=== PATIENT | female | born 1990 | race Caucasian/White ===

== ENCOUNTER 2016-09-22 18:56 | Inpatient (IN) | payer OTHER ==
[~2016-09-22] VITALS: Ht 193 cm; Wt 85.8 kg
[2016-09-22 22:30] VITALS: BP 95/53; RESP 18
[2016-09-22 23:00] VITALS: Ht 193 cm; Wt 85.8 kg
[2016-09-22] MEDS ORDERED: SOD CHLORIDE 0.9% 1,000 ML IV ONE (23:30)
[2016-09-23] MEDS ORDERED: SOD CHLORIDE 0.9% 1,000 ML IV ONE
[2016-09-23] MEDS ORDERED: NACL 0.9% 3 ML SYG IV SCH (00:30)
[2016-09-23] MEDS: ACETAMINOPHEN 325 MG TAB PO PRN ×3 (01:38→17:09)
[2016-09-23] MEDS: morphine 2 MG INJ IV PRN ×4 (01:38→22:51)
[2016-09-23 02:02] LABS: ADD SCAN DIFF NO
[2016-09-23 02:04] LABS: BASOPHILS % 0.2 % (0.0-2.0); HEMOGLOBIN 10.6 g/dl (12.0-16.0); LYMPHOCYTES # 1.1 10^3/ul (0.8-2.9); LYMPHOCYTES % 7.1 % (15.0-51.0); MEAN CORPUSCULAR HEMOGLOBIN 29.4 pg (29.0-33.0); MEAN CORPUSCULAR HGB CONC 36.6 g/dl (32.0-37.0); MEAN CORPUSCULAR VOLUME 80.6 fl (82.0-101.0); MEAN PLATELET VOLUME 9.7 fl (7.4-10.4); MONOCYTE # 0.4 10^3/ul (0.3-0.9); MONOCYTES % 2.6 % (0.0-11.0); NEUTROPHIL # 13.9 10^3/ul (1.6-7.5); NEUTROPHILS % 89.4 % (39.0-77.0); PLATELET COUNT 143 10^3/UL (140-415); RED CELL DISTRIBUTION WIDTH 14.1 % (11.5-14.5); WHITE BLOOD COUNT 15.6 10^3/ul (4.8-10.8)
[2016-09-23 02:09] VITALS: BP 94/54; RESP 18
[2016-09-23 02:27] LABS: ALBUMIN 3.7 g/dl (3.3-4.9); ALBUMIN/GLOBULIN RATIO 1.37; BILIRUBIN,INDIRECT 1.1 mg/dl (0-1.1); BILIRUBIN,TOTAL 1.1 mg/dl (0.2-1.3); CALCIUM 8.3 mg/dl (8.4-10.2); CREATININE 0.64 mg/dl (0.44-1.00); TOTAL PROTEIN 6.4 g/dl (6.1-8.1)
[2016-09-23 02:41] LABS: INR 1.17; PT RATIO 1.2
[2016-09-23 02:42] LABS: PARTIAL THROMBOPLASTIN TIME 30.4 Sec (25.0-35.0)
[2016-09-23] MEDS: SOD CHLORIDE 0.9% 1,000 ML IV SCH ×3 (03:29→22:51)
[2016-09-23] MEDS ORDERED: IBUPROFEN 600 MG TAB PO ONE (04:00)
[2016-09-23] MEDS ORDERED: KETOROLAC 15 MG INJ IV ONE (05:00)
[2016-09-23] MEDS: PANTOPRAZOLE 40 MG INJ IV SCH (05:07)
--- NOTE | 2016-09-23 05:18 | HP ---
Date/Time of Note Date/Time of Note DATE: 09/23/16 TIME: 05:11 Assessment/Plan VTE Prophylaxis VTE Prophylaxis Intervention: SCD's Lines/Catheters IV Catheter Type (from [facility]): Peripheral IV Urinary Cath still in place: No Assessment/Plan Chief Complaint/Hosp Course This is a 18-year-old female [facility] for: #1 sepsis: Tachycardia/fevers/leukocytosis with suspected infection. At the current time will further evaluate for possible endometritis. Will also order urinalysis and urine culture. Will start on IV ceftriaxone and doxycycline. #2 suspected endometritis: White blood cell count of 15. Patient had positive leukoesterase on her labs from [facility]. She was treated with clindamycin and gentamicin at the facility. After discussing the case with the OB laborist at [facility] at the current time we will order a stat vaginal ultrasound. Will put her on IV ceftriaxone and doxycycline. BOWLING ALLEY MANAGER will evaluate the patient, appreciate their involvement. IV pain control medications. IV fluid hydration. #3 miscarriage: Patient apparently had a miscarriage approximately 15 days ago and is status post D&C approximately 5 days ago. Will order vaginal ultrasound to further evaluate. #4 DVT and GI prophylaxis: SCDs, Protonix Further treatment strategy will be implemented as per the clinical course Problems: HPI/ROS Admit Date/Time Admit Date/Time Sep 22, 2016 at 22:22 Hx of Present Illness Chief complaint: Bilateral lower abdominal pain This is a 26-year-old female who was transferred over here from [facility] for bilateral lower abdominal pain suspected of possible endometritis. Patient was seen there complaining of pain that started yesterday with a fever , and bilateral lower abdominal pain. She 15 days ago had a miscarriage. And then was seen at a clinic where she had a D&C approximately 5 days ago. Her pain started last night at approximately 5 PM. She did have vomiting as well. She still feels nauseated at this time. She is . Allergies: NKDA Medications: None ROS Const: As per HPI Eyes : No pain discharge or redness or change in visual acuity ENT: No pain, sore throat, congestion, congestion, dysphagia or discharge Respiratory: No shortness of breath, cough, sputum, wheezing, or pleuritic pain Cardiovascular: No chest pain, palpitation, PND, or edema GI : As per HPI Genitourinary: As per HPI Musculoskeletal: No joint pain, back pain, neck pain, restricted range of motion in neck or joints Skin: No rash, bruising or hives Neuro: No headache, dizziness, syncope, seizure, focal weakness Endocrine: No polyuria, polydipsia, temperature intolerance Psych: No hallucination, depression, anxiety or suicidal ideation PMH/Family/Social Past Medical History Appendicitis, miscarriage Past Surgical History D&C approximately 5 days ago, appendectomy Family History Significant Family History: no pertinent family hx Social History Alcohol Use: none Smoking Status: Never smoker Drug Use: none Exam/Review of Systems Vital Signs Vitals Vital Signs Date Time Temp Pulse Resp B/P Pulse Ox O2 Delivery O2 Flow Rate FiO2 09/23/16 02:09 103.1 127 18 94/54 93 Exam Exam General: Patient is a obese female in mild distress from pain. HEENT: Atraumatic, normocephalic. The pupils are equal, round and reactive. Extraocular motor are intact Neck: Supple with full range of motion. No rigidity or meningismus Chest: Nontender Lungs: Clear to auscultation bilaterally no crackles rales or wheezing Heart: Normal S1-S2, Regular rhythm and rate. No murmur, S3, or S4 Abdomen: Soft, bilateral lower abdominal quadrant tenderness to palpation Extremities: Normal to inspection, no edema no cyanosis Neurologic: Normal mental status, speech normal, cranial nerves II through XII are intact, motor and sensory are intact, no focal weakness Labs Result Diagram: 09/23/1613409/23/16 0135 Medications Medications Current Medications Sodium Chloride (NS) 1,000 ml @ 80 mls/hr [id number] IV Last administered on 09/23 03:29; Admin Dose 80 MLS/HR; Start 09/23/16 at 00:23 Ondansetron HCl (Zofran Inj) 4 mg Q6H PRN IV NAUSEA AND/OR VOMITING; Start 12/31 at 00:30 Acetaminophen (Tylenol Tab) 650 mg Q6H PRN PO PAIN LEVEL 1-3 OR FEVER Last administered on 09/23/16 01:38; Admin Dose 650 MG; Start 09/23/16 at 00:30 Morphine Sulfate (morphine) 2 mg Q4H PRN IV SEVERE PAIN LEVEL 7-10 Last administered on 09/23/16 01:38; Admin Dose 2 MG; Start 09/23/16 at 00:30 Pantoprazole (Protonix Iv) 40 mg DAILY@06 IV Last administered on 09/23/16 05: 07; Admin Dose 40 MG; Start 09/23/16 at 06:00 Hydromorphone HCl (Dilaudid) 1 mg Q4H PRN IV PAIN; Start 09/23/16 at 05:00 AIDE DIANA Sep 23, 2016 05:17
[2016-09-23] MEDS ORDERED: HYDROmorphONE 1 MG/ML SYG IV PRN (05:30)
--- NOTE | 2016-09-23 06:03 | RADRPT ---
PROCEDURE: US Pelvis CLINICAL INDICATION: Pelvic pain. TECHNIQUE: Sonographic evaluation of the pelvis was performed utilizing both transabdominal and tr ansvaginal technique. Curved array transabdominal transducer technique as well as a high frequency endovaginal probe was utilized. Images were reviewed on the high-resolution PACS workstation. COMPARISON: No prior studies are available for comparison. FINDINGS: The uterus is mildly enlarged, measuring 12.3 x 5.7 x 9.1 cm in dimension. The uterus is anteverted in normal position. The endometrium is within normal limits for a menstrual age female measuring 10 mm in diameter. The normal trilaminar stripe of the endometrium is preserved. The right ovary measures 4.2 x 2.1 x 3.1 cm in dimension. The left ovary measures 4.3 x 1.5 x 2.8 c m in dimension. The ovaries are symmetric in size, echogenicity, and morphology. Normal Doppler fl ow is demonstrated to both ovaries. There are no adnexal masses. There is no significant free flui d in the pelvis. IMPRESSION: Unremarkable ultrasound of the pelvis. RPTAT: HH .Kary Lund MD, Date Time Electronically viewed and signed by .Kary Lund MD, on 09/23/2016 06:03 .G/
[2016-09-23] MEDS: CEFTRIAXONE 1 GM/50 ML (PMX) 50 ML IVPB SCH (06:22)
[2016-09-23 07:10] LABS: ADD UMIC YES; UR ASCORBIC ACID NEGATIVE (NEGATIVE); UR BILIRUBIN (Dip) NEGATIVE (NEGATIVE); UR BLOOD (Dip) 3+ mg/dL (NEGATIVE); UR CLARITY SLIGHTLY CLOUDY (CLEAR); UR COLOR YELLOW (YELLOW); UR GLUCOSE (Dip) NEGATIVE (NEGATIVE); UR KETONES (Dip) 1+ mg/dL (NEGATIVE); UR LEUKOCYTE ESTERASE (Dip) TRACE Leu/ul (NEGATIVE); UR MUCUS FEW /HPF (NONE SEEN); UR NITRITE (Dip) NEGATIVE (NEGATIVE); UR RBC 19 /HPF (0-5); UR SPECIFIC GRAVITY (Dip) 1.017 (1.003-1.030); UR SQUAMOUS EPITHELIAL CELL FEW /HPF (FEW); UR TOTAL PROTEIN (Dip) NEGATIVE (NEGATIVE); UR UROBILINOGEN (Dip) NEGATIVE (NEGATIVE)
[2016-09-23 07:35] VITALS: BP 104/59; RESP 16
[2016-09-23] MEDS: DOXYCYCLINE 100 MG in SOD CHLORIDE 0.9% 250 ML IVPB SCH ×2 (08:39→22:43)
[2016-09-23 14:30] VITALS: BP 93/56; RESP 16
[2016-09-23] MEDS: ONDANSETRON 4 MG INJ IV PRN (16:22)
[2016-09-23] MEDS ORDERED: SOD CHLORIDE 0.9% 500 ML IV ONE (17:30)
[2016-09-23] MEDS ORDERED: BARIUM SULF 2% 450 ML BTL (BERRY SMOOTHIE) PO ONE (17:30)
--- NOTE | 2016-09-23 17:39 | EN ---
Date/Time of Note Date/Time of Note DATE: 09/23/16 TIME: 17:38 Event Note Medicine Medicine Event Note Around 1715, I received a call from the RN stating that the patient has a high fever and she is tachycardic and has shaking chills. Came to the patient's bedside and assessed the patient. The patient was complaining of headache. Denied any chest pain. Complains of lower back pain. The patient was noted to be in sinus tachycardia. Patient was desaturating. Hence the patient was put on supplemental oxygen. A stat chest x-ray and stat CT scan of the abdomen and pelvis was ordered. A stat 12-lead EKG was ordered. A normal saline bolus was ordered followed by normal saline at 125 mL/hr. The patient will be moved to telemetry floor. The patient also relates that she has a history of supraventricular tachycardia in the remote past. However, she does not take any medications for this. Patient will be closely monitored in the telemetry floor. Infectious disease consult will be called for further evaluation of her underlying sepsis. Case discussed with Dr. Victor Critical care time: 35 minutes. SARITA BENSON NP Sep 23, 2016 17:39
--- NOTE | 2016-09-23 18:22 | RADRPT ---
PROCEDURE: XR Chest. CLINICAL INDICATION: Rule out infiltrates. TECHNIQUE: PA and Lateral views of the chest were obtained. COMPARISON: None. FINDINGS: The cardiomediastinal silhouette is within normal limits. The lungs are clear. No signs of pleural f luid or pneumothorax are seen. The osseous structures and soft tissues are unremarkable. IMPRESSION: No evidence for active cardiopulmonary disease. RPTAT: UU Physician Yarelis Date Time Electronically viewed and signed by Abby Hamlin Physician on 09/23/2016 18:22 RS/
[2016-09-23] MEDS: HYDROmorphONE 1 MG/ML SYG IV PRN (19:23)
[2016-09-23 19:37] VITALS: PULSE 110
[2016-09-23 20:00] VITALS: BP 120/67; RESP 15
[2016-09-23 20:05] VITALS: PULSE 110
[2016-09-23] MEDS ORDERED: KETOROLAC 15 MG INJ IV STA (23:29)
[2016-09-24] VITALS (12 sets, daily range): BP systolic 89–100; BP diastolic 52–62; PULSE 69–85; RESP 15–18
[2016-09-24] MEDS: HYDROmorphONE 1 MG/ML SYG IV PRN ×3 (03:03→21:33)
[2016-09-24] MEDS: CEFTRIAXONE 1 GM/50 ML (PMX) 50 ML IVPB SCH (05:09)
[2016-09-24] MEDS: PANTOPRAZOLE 40 MG INJ IV SCH (05:09)
[2016-09-24] MEDS: SOD CHLORIDE 0.9% 1,000 ML IV SCH ×4 (06:34→22:34)
[2016-09-24] MEDS: ONDANSETRON 4 MG INJ IV PRN (06:43)
--- NOTE | 2016-09-24 06:45 | RADRPT ---
PROCEDURE: CT Abdomen and pelvis without contrast. CLINICAL INDICATION: Abdominal pain TECHNIQUE: CT scan of the abdomen and pelvis with contrast was performed on a multidetector high-r esolution CT scan. . Coronal and sagittal reformatted images were obtained from the axial source i mages. Standard CT scan of the abdomen pelvis without contrast protocols were performed. The total exam CTDI equals 20.33 mGy and the total exam DLP equals 1275.66 mGy-cm. One or more of the following dose reduction techniques were used: - Automated exposure control. - Adjustment of the mA and/or kV according to patient size. Use of iterative reconstruction technique. COMPARISON: Pelvic ultrasound 09/23/2016 FINDINGS: There is bilateral lower lobe consolidation which may all be due to atelectasis though rule out pneu monia. There are bilateral trace pleural effusions. There are multiple calcified gallstones within a contracted gallbladder 1 of which is at the level t he gallbladder neck. No pericholecystic fluid or biliary ductal dilation. However a right upper qu adrant abdominal ultrasound may be helpful for further evaluation. The kidneys are normal in size without calcified renal calculi hydronephrosis or intra renal masses bilaterally. The ureters and urinary bladder are unremarkable. The uterus is anteverted but otherwise unremarkable. No adnexal masses. There is trace fluid in th e cul-de-sac without other abdominal free fluid, free air, abscesses or lymphadenopathy. The appendix is not visualized however no CT evidence of appendicitis. The stomach, small bowel and large bowel are unremarkable. The spleen is mildly enlarged but no focal splenic lesions. There is 1.5 cm accessory spleen along the medial aspect of the spleen. The liver pancreas and adrenal glands are unremarkable. The aorta is unremarkable. There is a tiny fat containing umbilical hernia but no herniated bowel or strangulation. The remain radha of the lower thoracic abdominal and pelvic andrew are unremarkable. There are no acute osseous findings are osteoblastic/osteolytic lesions. Elongated well-circumscrib ed sclerotic density involving the lateral left ilium as likely a bone island. IMPRESSION: 1. Bilateral lower lobe consolidations may all represent atelectasis however without pneumonia. 2. Bilateral basilar trace pleural effusions. 3. Multiple calcified gallstones within a contracted gallbladder is described above. No pericholec ystic fluid biliary ductal dilation. Recommend clinical correlation and consideration of a right up per quadrant abdominal ultrasound for further evaluation. 4. No evidence of gastrointestinal disease. Negative for intra-abdominal free air or abscesses. 5. Mild splenomegaly without focal splenic lesions. 6. Tiny fat containing umbilical hernia without herniated bowel or strangulation. RPTAT:AAJJ Pierce Bateman Physician Date Time Electronically viewed and signed by Pierce Bateman Physician on 09/24/2016 06:45 BM/
--- NOTE | 2016-09-24 06:47 | RADRPT ---
PROCEDURE: CT Brain without contrast. CLINICAL INDICATION: headache TECHNIQUE: CT scan of the brain was performed on a multidetector high-resolution CT scan. Axial im aging was obtained of the brain without contrast administration. Coronal and sagittal reformatted i mages were obtained from the axial source images. Standard CT scan of the head without contrast prot ocols were performed. The total exam CTDI equals 43.58 mGy and the total exam DLP equals 630.2 mGy-cm. One or more of the following dose reduction techniques were used: - Automated exposure control. - Adjustment of the mA and/or kV according to patient size. Use of iterative reconstruction technique. COMPARISON: None. FINDINGS: The ventricular system and peripheral CSF spaces are unremarkable. Negative for intracranial masses hemorrhages or midline shift. The woodward-white matter junction is unremarkable. The bones and parul rium are intact. Paranasal sinuses and mastoids are unremarkable. IMPRESSION: Negative CT scan of the head without contrast. RPTAT:AAJJ Physician Esther Date Time Electronically viewed and signed by Physician Esther on 09/24/2016 06:47 BM/
[2016-09-24] MEDS: morphine 2 MG INJ IV PRN ×2 (06:52→18:11)
[2016-09-24 08:38] LABS: ADD SCAN DIFF NO
[2016-09-24 08:42] LABS: BASOPHILS % 0.4 % (0.0-2.0); EOSINOPHILS # 0.1 10^3/ul (0.0-0.5); HEMATOCRIT 28.4 % (37.0-47.0); LYMPHOCYTES # 1.8 10^3/ul (0.8-2.9); LYMPHOCYTES % 22.5 % (15.0-51.0); MEAN CORPUSCULAR HEMOGLOBIN 28.7 pg (29.0-33.0); MEAN CORPUSCULAR HGB CONC 35.2 g/dl (32.0-37.0); MEAN CORPUSCULAR VOLUME 81.6 fl (82.0-101.0); MEAN PLATELET VOLUME 10.8 fl (7.4-10.4); MONOCYTE # 0.4 10^3/ul (0.3-0.9); MONOCYTES % 5.5 % (0.0-11.0); NEUTROPHIL # 5.5 10^3/ul (1.6-7.5); NEUTROPHILS % 69.7 % (39.0-77.0); PLATELET COUNT 144 10^3/UL (140-415); RED BLOOD COUNT 3.48 10^6/ul (4.20-5.40); RED CELL DISTRIBUTION WIDTH 14.4 % (11.5-14.5); WHITE BLOOD COUNT 7.9 10^3/ul (4.8-10.8)
[2016-09-24 09:04] LABS: MAGNESIUM 1.7 mg/dl (1.7-2.5); PHOSPHORUS 3.1 mg/dl (2.5-4.9)
[2016-09-24 09:09] LABS: ALBUMIN 3.4 g/dl (3.3-4.9); ALBUMIN/GLOBULIN RATIO 1.25; BILIRUBIN,INDIRECT 0.4 mg/dl (0-1.1); BILIRUBIN,TOTAL 0.4 mg/dl (0.2-1.3); CALCIUM 8.8 mg/dl (8.4-10.2); CREATININE 0.49 mg/dl (0.44-1.00); POTASSIUM 3.9 mmol/L (3.5-5.1); TOTAL PROTEIN 6.1 g/dl (6.1-8.1)
[2016-09-24 09:16] LABS: CHOL/HDL RATIO 4.2 RATIO
[2016-09-24 09:37] LABS: THYROID STIMULATING HORMONE 2.18 MIU/L (0.465-4.680)
--- NOTE | 2016-09-24 10:50 | PN ---
Date/Time of Note Date/Time of Note DATE: 09/24/16 TIME: 10:49 Assessment/Plan VTE Prophylaxis VTE Prophylaxis Intervention: SCD's Lines/Catheters IV Catheter Type (from [facility]): Peripheral IV Urinary Cath still in place: No Assessment/Plan Chief Complaint/Hosp Course 1. Sepsis. Suspected infection. The patient is status post recent D&C. Status post evaluation by WATER POLLUTION SPECIALIST who agreed with continuing the current antibiotics. No evidence of septic shock. Infectious disease is following the patient. 2. Suspected endometritis. Pelvic ultrasound unremarkable. Continue antibiotics as per WATER POLLUTION SPECIALIST recommendations. 3. Abdominal pain. CT scan of the abdomen and pelvis showing multiple calcified gallstones within a contracted gallbladder with no pericholecystic fluid or biliary ductal dilatation. Abdominal pain was probably secondary to underlying genitourinary infection. Will obtain a right upper quadrant ultrasound to further evaluate the gallbladder. 4. Bilateral lower lobe consolidation. Probably atelectasis. Start the patient on incentive spirometry. 5. Microcytic, hypochromic anemia. The patient is closely. Will obtain an iron panel. 6. Fluids, electrolytes, and nutrition. Regular diet. 7. DVT prophylaxis. Bilateral sequential compression devices. 8. Gastrointestinal prophylaxis. Proton pump inhibitors. 9. Plan. Continue antibiotics. Await pancultures. Continue WATER POLLUTION SPECIALIST and ID recommendations. Encourage incentive spirometry. Encourage out of bed and ambulation. Case discussed with . Problems: Subjective 24 Hr Interval Summary Free Text/Dictation Patient remains afebrile. Had a severe headache earlier. Getting pain medications [id number] for headache. Exam/Review of Systems Vital Signs Vitals Vital Signs Date Time Temp Pulse Resp B/P Pulse Ox O2 Delivery O2 Flow Rate FiO2 09/24/16 08:06 70 09/24/16 07:47 2.0 09/24/16 07:06 98.8 18 94/62 100 09/23/16 20:05 Nasal Cannula Intake and Output 09/23/16 09/23/16 09/24/16 15:00 23:00 07:00 Intake Total 1090 ml 1570 ml Balance 1090 ml 1570 ml Exam General: Adequately build 26 year-old female lying in bed in no apparent distress. HEENT: Normocephalic, atraumatic. Eyes: Anicteric sclerae, conjunctivae clear. ENT: Nasal septum midline, oral mucosa moist. Neck supple, no JVD noticed. Respiratory: Bilaterally clear breath sounds. No use of accessory muscles of respiration. No adventitious breath sounds. Cardiovascular: S1, S2 heard. No murmurs or gallops. Abdomen: Soft and nondistended. Bowel sounds positive in all 4 quadrants. Minimal right upper quadrant and left upper quadrant tenderness. Genitourinary: Deferred. Extremities: No cyanosis, no clubbing, no edema. Peripheral pulses palpable. Neurologic: Cranial nerves II through XII grossly intact. The patient is awake, alert, and oriented. Skin: Normal skin turgor. No skin rashes. Results Result Diagram: 09/24/1633 09/24/16732 Results 24 hrs Laboratory Tests Test 09/23/16 21:50 09/24/16 07:33 Urine Test NEGATIVE White Blood Count 7.9 # Red Blood Count 3.48 L Hemoglobin 10.0 L Hematocrit 28.4 L Mean Corpuscular Volume 81.6 L Mean Corpuscular Hemoglobin 28.7 L Mean Corpuscular Hemoglobin Concent 35.2 Red Cell Distribution Width 14.4 Platelet Count 144 Mean Platelet Volume 10.8 H Neutrophils % 69.7 Lymphocytes % 22.5 Monocytes % 5.5 Eosinophils % 1.0 Basophils % 0.4 Nucleated Red Blood Cells % 0.0 Neutrophils # 5.5 Lymphocytes # 1.8 Monocytes # 0.4 Eosinophils # 0.1 Basophils # 0.0 Nucleated Red Blood Cells # 0.0 Sodium Level 129 L Potassium Level 3.9 Chloride Level 101 Carbon Dioxide Level 26 Anion Gap 6 L Blood Urea Nitrogen 6 L Creatinine 0.49 Glucose Level 86 Hemoglobin A1c 4.8 Calcium Level 8.8 Phosphorus Level 3.1 Magnesium Level 1.7 Total Bilirubin 0.4 Direct Bilirubin 0.00 Indirect Bilirubin 0.4 Aspartate Amino Transf (AST/SGOT) 44 Alanine Aminotransferase (ALT/SGPT) 65 Alkaline Phosphatase 72 Total Protein 6.1 Albumin 3.4 Globulin 2.70 Albumin/Globulin Ratio 1.25 Triglycerides Level 137 Cholesterol Level 137 LDL Cholesterol, Calculated 78 HDL Cholesterol 32 L Cholesterol/HDL Ratio 4.2 Thyroid Stimulating Hormone (TSH) 2.180 Free Thyroxine 1.28 Medications Medications Current Medications Sodium Chloride (NS) 1,000 ml @ 125 mls/hr Q8H IV Last administered on 09:38; Admin Dose 125 MLS/HR; Start 09/23/16 at 00:23 Ondansetron HCl (Zofran Inj) 4 mg Q6H PRN IV NAUSEA AND/OR VOMITING Last administered on 09/24/16 06:43; Admin Dose 4 MG; Start 09/23/16 at 00:30 Acetaminophen (Tylenol Tab) 650 mg Q6H PRN PO PAIN LEVEL 1-3 OR FEVER Last administered on 09/23/16 17:09; Admin Dose 650 MG; Start 09/23/16 at 00:30 Morphine Sulfate (morphine) 2 mg Q4H PRN IV SEVERE PAIN LEVEL 7-10 Last administered on 09/24/16 06:52; Admin Dose 2 MG; Start 09/23/16 at 00:30 Pantoprazole (Protonix Iv) 40 mg DAILY@06 IV Last administered on 09/24/16 05: 09; Admin Dose 40 MG; Start 09/23/16 at 06:00 Hydromorphone HCl 1 mg 1 mg Q4H PRN IV PAIN Last administered on 09/24/16 09: 37; Admin Dose 1 MG; Start 09/23/16 at 05:00 Ceftriaxone Sodium 50 ml @ 100 mls/hr Q24H IVPB Last administered on 05:09; Admin Dose 100 MLS/HR; Start 09/23/16 at 05:30 Doxycycline Hyclate/Sodium Chloride (Vibramycin/NS) 250 ml @ 250 mls/hr Q12 IVPB Last administered on 09/23/16 22:43; Admin Dose 250 MLS/HR; Start at 09:00 Hydromorphone HCl (Dilaudid) 1 mg Q4H PRN IV PAIN; Start 09/23/16 at 05:30 SARITA BENSON NP Sep 24, 2016 10:50
[2016-09-24 11:38] LABS: IRON 33 ug/dl (35-150)
[2016-09-24 11:47] LABS: TOTAL IRON BINDING CAPACITY 317 ug/dl (241-421)
[2016-09-24] MEDS: DOXYCYCLINE 100 MG in SOD CHLORIDE 0.9% 250 ML IVPB SCH ×2 (11:57→21:29)
[2016-09-24] MEDS ORDERED: ACET/BUTAL/CAFF TAB PO ONE (12:30)
--- NOTE | 2016-09-24 14:02 | CONS ---
Date/Time of Note Date/Time of Note DATE: 09/24/16 TIME: 14:02 Assessment/Plan Assessment/Plan Chief Complaint/Hosp Course Patient is complaining of headache, status post Dilaudid dose, she is in no distress, no dysuria Temperature 99 pulse 76 respirations 18 blood pressure 97/60 saturation 98 on 2 L. T-max yesterday 101.2 WBC 7.9 H&H 10 and 28.4 platelets 144, no shift BUN 6 creatinine 0.49 Microbiology blood and urine cultures remain negative CT of the abdomen mantle and pelvis on admission revealed bilateral lower lobe consolidation, bilateral trace pleural effusions. Multiple calcified gallstones without pericholecystic fluid, biliary ductal dilation. Negative for intra-abdominal free air or abscesses Brain CT was negative Antibiotics: Doxycycline, Rocephin Physical examination: Obese, well-developed middle-aged woman who is alert in no distress. Head atraumatic normocephalic, sclera nonicteric, bugle mucosa pink. Neck is supple, no nuchal rigidity. Chest rise symmetrical, breath sounds clear. Abdomen soft bowel tones present no tenderness on palpation. Extremities without cyanosis edema Assessment: 1. Sepsis with fevers leukocytosis tachycardia 2. Status post recent d&c 3. Bilateral lower lobe consolidation but no evidence of pneumonia 4. Obesity Plan: Clinically stable, afebrile, WBC tracing down, continue on current antibiotics, await for final cultures follow MATH TUTOR recommendations. Discussed with patient and RN Problems: Consultation Date/Type/Reason Admit Date/Time Sep 22, 2016 at 22:22 Initial Consult Date Type of Consultation: ID Exam/Review of Systems Vital Signs Vitals Vital Signs Date Time Temp Pulse Resp B/P Pulse Ox O2 Delivery O2 Flow Rate FiO2 09/24/16 12:09 Nasal Cannula 2.0 09/24/16 12:04 73 09/24/16 11:36 99.0 18 97/60 98 Intake and Output 09/23/16 09/23/16 09/24/16 15:00 23:00 07:00 Intake Total 1090 ml 1570 ml Balance 1090 ml 1570 ml Results Result Diagram: 09/24/16 0733 09/24/16 0733 Results 24 hrs Laboratory Tests Test 09/23/16 21:50 09/24/16 07:33 Urine Test NEGATIVE White Blood Count 7.9 # Red Blood Count 3.48 L Hemoglobin 10.0 L Hematocrit 28.4 L Mean Corpuscular Volume 81.6 L Mean Corpuscular Hemoglobin 28.7 L Mean Corpuscular Hemoglobin Concent 35.2 Red Cell Distribution Width 14.4 Platelet Count 144 Mean Platelet Volume 10.8 H Neutrophils % 69.7 Lymphocytes % 22.5 Monocytes % 5.5 Eosinophils % 1.0 Basophils % 0.4 Nucleated Red Blood Cells % 0.0 Neutrophils # 5.5 Lymphocytes # 1.8 Monocytes # 0.4 Eosinophils # 0.1 Basophils # 0.0 Nucleated Red Blood Cells # 0.0 Sodium Level 129 L Potassium Level 3.9 Chloride Level 101 Carbon Dioxide Level 26 Anion Gap 6 L Blood Urea Nitrogen 6 L Creatinine 0.49 Glucose Level 86 Hemoglobin A1c 4.8 Calcium Level 8.8 Phosphorus Level 3.1 Magnesium Level 1.7 Iron Level 33 L Total Iron Binding Capacity 317 Percent Iron Saturation 10 L Ferritin 118.0 Total Bilirubin 0.4 Direct Bilirubin 0.00 Indirect Bilirubin 0.4 Aspartate Amino Transf (AST/SGOT) 44 Alanine Aminotransferase (ALT/SGPT) 65 Alkaline Phosphatase 72 Total Protein 6.1 Albumin 3.4 Globulin 2.70 Albumin/Globulin Ratio 1.25 Triglycerides Level 137 Cholesterol Level 137 LDL Cholesterol, Calculated 78 HDL Cholesterol 32 L Cholesterol/HDL Ratio 4.2 Thyroid Stimulating Hormone (TSH) 2.180 Free Thyroxine 1.28 Medications Medications Current Medications Sodium Chloride (NS) 1,000 ml @ 125 mls/hr Q8H IV Last administered on 09:38; Admin Dose 125 MLS/HR; Start 09/23/16 at 00:23 Ondansetron HCl (Zofran Inj) 4 mg Q6H PRN IV NAUSEA AND/OR VOMITING Last administered on 09/24/16 06:43; Admin Dose 4 MG; Start 09/23/16 at 00:30 Acetaminophen (Tylenol Tab) 650 mg Q6H PRN PO PAIN LEVEL 1-3 OR FEVER Last administered on 09/23/16 17:09; Admin Dose 650 MG; Start 09/23/16 at 00:30 Morphine Sulfate (morphine) 2 mg Q4H PRN IV SEVERE PAIN LEVEL 7-10 Last administered on 09/24/16 06:52; Admin Dose 2 MG; Start 09/23/16 at 00:30 Pantoprazole (Protonix Iv) 40 mg DAILY@06 IV Last administered on 09/24/16 05: 09; Admin Dose 40 MG; Start 09/23/16 at 06:00 Hydromorphone HCl 1 mg 1 mg Q4H PRN IV PAIN Last administered on 09/24/16 09: 37; Admin Dose 1 MG; Start 09/23/16 at 05:00 Ceftriaxone Sodium 50 ml @ 100 mls/hr Q24H IVPB Last administered on 05:09; Admin Dose 100 MLS/HR; Start 09/23/16 at 05:30 Doxycycline Hyclate/Sodium Chloride (Vibramycin/NS) 250 ml @ 250 mls/hr Q12 IVPB Last administered on 09/24/16 11:57; Admin Dose 250 MLS/HR; Start at 09:00 Hydromorphone HCl (Dilaudid) 1 mg Q4H PRN IV PAIN; Start 09/23/16 at 05:30 BELLE BOBO NP Sep 24, 2016 14:02
--- NOTE | 2016-09-24 16:11 | RADRPT ---
PROCEDURE: US Abdomen. CLINICAL INDICATION: abdominal pain TECHNIQUE: Multiple real-time images were acquired of the patient's right upper quadrant abdomen a nd retroperitoneum utilizing a high resolution transducer. COMPARISON: CT from same day FINDINGS: The liver demonstrates normal echogenicity. The liver is normal in size and no focal solid lesions are seen. The liver measures 16.1 cm in length. The portal vein is patent with normal direction of f low. No intrahepatic biliary dilatation is seen. Multiple calcified gallstones are identified within the gallbladder. There is no pericholecystic fl uid or gallbladder wall thickening. The common bile duct measures 5 mm in maximal dimension. The visualized portions of the pancreas are unremarkable. The tail of the pancreas is not seen. No free fluid is identified. The right kidney is normal in size, and demonstrate normal echogenicity and cortical thickness. The right kidney measures 10.8 cm in long dimension. There is no evidence of hydronephrosis. There are no kidney stones. RPTAT: AA IMPRESSION: Cholelithiasis. No evidence of gallbladder wall thickening or pericholecystic fluid. .Buck Vega MD, MD Date Time Electronically viewed and signed by .Buck Vega MD, MD on 09/24/2016 16:10 .S/
--- NOTE | 2016-09-24 16:42 | CONS ---
Date/Time of Note Date/Time of Note DATE: 09/24/16 TIME: 16:35 Consultation Date/Type/Reason Admit Date/Time September 24, 2016 Hospital consult Reason for Consultation This patient is a 26 years old 3 para 2 1 who was transferred from [facility] due to lower abdominal pain and fever. this patient had an early 3 weeks ago and then about 6 days ago. in this hospital, she had a D&C . when she was admitted today the differential diagnosis of endometritis and any other infectious disease and condition were entertained : on the studies she did have the cholelithiasis as well as atelectasis on chest x-ray ,some degree of anemia in fact this morning her temperature raised up to 101 she is currently on Vibramycin 100 mg every 12 hours IV. As well as Rocephin 1 g . her WBC is normal around 7000 on examination her chest is clear no rales, abdomen is soft no real tenderness no rebound no CVA tenderness I have done a pelvic examination :she had a mild pinkish discharge vulva vagina normal uterus is completely normal no cervical tenderness no tenderness on pressure .adnexa appear to be normal no mass or enlargement, no tenderness Laboratory Tests Test 09/23/16 21:50 09/24/16 07:33 Urine Test NEGATIVE White Blood Count 7.910^3/ul Red Blood Count 3.4810^6/ul Hemoglobin 10.0g/dl Hematocrit 28.4% Mean Corpuscular Volume 81.6fl Mean Corpuscular Hemoglobin 28.7pg Mean Corpuscular Hemoglobin Concent 35.2g/dl Red Cell Distribution Width 14.4% Platelet Count 88668^3/UL Mean Platelet Volume 10.8fl Neutrophils % 69.7% Lymphocytes % 22.5% Monocytes % 5.5% Eosinophils % 1.0% Basophils % 0.4% Nucleated Red Blood Cells % 0.0/100WBC Neutrophils # 5.510^3/ul Lymphocytes # 1.810^3/ul Monocytes # 0.410^3/ul Eosinophils # 0.110^3/ul Basophils # 0.010^3/ul Nucleated Red Blood Cells # 0.010^3/ul Sodium Level 129mmol/L Potassium Level 3.9mmol/L Chloride Level 101mmol/L Carbon Dioxide Level 26mmol/L Anion Gap 6 Blood Urea Nitrogen 6mg/dl Creatinine 0.49mg/dl Glucose Level 86mg/dl Hemoglobin A1c 4.8% Calcium Level 8.8mg/dl Phosphorus Level 3.1mg/dl Magnesium Level 1.7mg/dl Iron Level 33ug/dl Total Iron Binding Capacity 317ug/dl Percent Iron Saturation 10% SAT Ferritin 118.0ng/ml Total Bilirubin 0.4mg/dl Direct Bilirubin 0.00mg/dl Indirect Bilirubin 0.4mg/dl Aspartate Amino Transf (AST/SGOT) 44IU/L Alanine Aminotransferase (ALT/SGPT) 65IU/L Alkaline Phosphatase 72IU/L Total Protein 6.1g/dl Albumin 3.4g/dl Globulin 2.70g/dl Albumin/Globulin Ratio 1.25 Triglycerides Level 137mg/dl Cholesterol Level 137mg/dl LDL Cholesterol, Calculated 78mg/dl HDL Cholesterol 32mg/dl Cholesterol/HDL Ratio 4.2RATIO Thyroid Stimulating Hormone (TSH) 2.180MIU/L Free Thyroxine 1.28ng/dl Current Medications Medications (Trade) Dose Ordered Sig/Mindy Route PRN Reason Start Time Stop Time Status Last Admin Dose Admin Sodium Chloride 1,000 ml @ 500 mls/hr Q2H ONCE IV 09/22/16 23:30 09/22/16 23:53 DC Sodium Chloride 1,000 ml @ 500 mls/hr Q2H ONCE IV 09/23/16 00:00 09/23/16 01:59 DC 09/23/16 01:38 500 MLS/HR Sodium Chloride (NS) 1,000 ml @ 125 mls/hr Q8H IV 09/23/16 00:23 09/24/16 09:38 125 MLS/HR IV Flush (NS 3 ml) 3 ml PER PROTOCOL IV 09/23/16 00:30 Ondansetron HCl (Zofran Inj) 4 mg Q6H PRN IV NAUSEA AND/OR VOMITING 09/23/16 00:30 09/24/16 06:43 4 MG Acetaminophen (Tylenol Tab) 650 mg Q6H PRN PO PAIN LEVEL 1-3 OR FEVER 09/23/16 00:30 09/23/16 17:09 650 MG Morphine Sulfate (morphine) 2 mg Q4H PRN IV SEVERE PAIN LEVEL 7-09/23/16 00:30 09/24/16 06:52 2 MG Pantoprazole (Protonix Iv) 40 mg DAILY@06 IV 09/23/16 06:00 09/24/16 05:09 40 MG Ibuprofen (Motrin) 600 mg ONCE ONCE PO 09/23/16 04:00 09/23/16 04:01 DC 09/23/16 04:14 600 MG Hydromorphone HCl (Dilaudid) 1 mg Q4H PRN IV PAIN 09/23/16 05:00 09/24/16 09:37 1 MG Ketorolac Tromethamine 15 mg 15 mg ONCE ONCE IV 09/23/16 05:00 09/23/16 05:01 DC 09/23/16 05:08 15 MG Ceftriaxone Sodium 50 ml @ 100 mls/hr Q24H IVPB 09/23/16 05:30 09/24/16 05:09 100 MLS/HR Doxycycline Hyclate/Sodium Chloride (Vibramycin/NS) 250 ml @ 250 mls/hr Q12 IVPB 09/23/16 09:00 09/24/16 11:57 250 MLS/HR Hydromorphone HCl (Dilaudid) 1 mg Q4H PRN IV PAIN 09/23/16 05:30 Barium Sulfate 900 ml [address] TO [address] ONCE PO 09/23/16 17:30 09/23/16 17:31 DC 09/24/16 03:32 900 ML Sodium Chloride (NS) 500 ml @ 500 mls/hr Q1H ONCE IV 09/23/16 17:30 09/23/16 18:29 DC 09/23/16 17:10 500 MLS/HR Ketorolac Tromethamine (Toradol) 15 mg ONCE STAT IV 09/23/16 23:29 09/23/16 23:31 DC 09/23/16 23:37 15 MG Acetaminophen/ Butalbital/ Caffeine (Fioricet) 1 tab ONCE ONCE PO 09/24/16 12:30 09/24/16 12:31 DC 09/24/16 12:59 1 TAB Constitutional: chills, diaphoresis, disoriented, febrile, improved, no complaints, other, poor po, requiring IVF, requiring O2 Eyes: No discharge, No no complaints, No other, No pain, No redness, No visual change ENT: No bleeding, No congestion, No discharge, No dysphagia, No no complaints, No other, No pain, No sore throat Respiratory: other Cardiovascular: other (No CVA tenderness) Gastrointestinal: No blood, No constipation, No decreased appetite, No diarrhea , No flatus, No nausea, No no complaints, No other, No pain, No passing stool, No vomiting Genitourinary: other (As I mentioned on pelvic examination normal vulva vagina cervix uterus and adnexa was no uterine tenderness noted), No bleeding, No discharge, No dysuria, No flank pain, No hematuria, No no complaints Musculoskeletal: No back pain, No bone/joint pain, No neck pain, No no complaints, No other, No restricted range of motion, No swelling Skin: other (No petechiae), No bruising, No erythema, No laceration, No no complaints, No pruritis, No rash, No skin lesions Additional Comments This patient is somewhat improving from unknown clinical condition causing her temperature doubt very much if the endometritis would be a final diagnosis or explaining the finding. With these findings I would recommend an ID consultation. No dictation Social History Alcohol Use: none Smoking Status: Never smoker Drug Use: none Exam/Review of Systems Vital Signs Vitals Vital Signs Date Time Temp Pulse Resp B/P Pulse Ox O2 Delivery O2 Flow Rate FiO2 09/24/16 16:05 71 09/24/16 12:09 Nasal Cannula 2.0 09/24/16 11:36 99.0 18 97/60 98 Intake and Output 09/23/16 09/23/16 09/24/16 14:59 22:59 06:59 Intake Total 1090 ml 1570 ml Balance 1090 ml 1570 ml Results Result Diagram: 09/24/16 0733 09/24/16 0733 Results 24 hrs Laboratory Tests Test 09/23/16 21:50 09/24/16 07:33 Urine Test NEGATIVE White Blood Count 7.9 # Red Blood Count 3.48 L Hemoglobin 10.0 L Hematocrit 28.4 L Mean Corpuscular Volume 81.6 L Mean Corpuscular Hemoglobin 28.7 L Mean Corpuscular Hemoglobin Concent 35.2 Red Cell Distribution Width 14.4 Platelet Count 144 Mean Platelet Volume 10.8 H Neutrophils % 69.7 Lymphocytes % 22.5 Monocytes % 5.5 Eosinophils % 1.0 Basophils % 0.4 Nucleated Red Blood Cells % 0.0 Neutrophils # 5.5 Lymphocytes # 1.8 Monocytes # 0.4 Eosinophils # 0.1 Basophils # 0.0 Nucleated Red Blood Cells # 0.0 Sodium Level 129 L Potassium Level 3.9 Chloride Level 101 Carbon Dioxide Level 26 Anion Gap 6 L Blood Urea Nitrogen 6 L Creatinine 0.49 Glucose Level 86 Hemoglobin A1c 4.8 Calcium Level 8.8 Phosphorus Level 3.1 Magnesium Level 1.7 Iron Level 33 L Total Iron Binding Capacity 317 Percent Iron Saturation 10 L Ferritin 118.0 Total Bilirubin 0.4 Direct Bilirubin 0.00 Indirect Bilirubin 0.4 Aspartate Amino Transf (AST/SGOT) 44 Alanine Aminotransferase (ALT/SGPT) 65 Alkaline Phosphatase 72 Total Protein 6.1 Albumin 3.4 Globulin 2.70 Albumin/Globulin Ratio 1.25 Triglycerides Level 137 Cholesterol Level 137 LDL Cholesterol, Calculated 78 HDL Cholesterol 32 L Cholesterol/HDL Ratio 4.2 Thyroid Stimulating Hormone (TSH) 2.180 Free Thyroxine 1.28 Medications Medications Current Medications Sodium Chloride (NS) 1,000 ml @ 125 mls/hr Q8H IV Last administered on 09:38; Admin Dose 125 MLS/HR; Start 09/23/16 at 00:23 Ondansetron HCl (Zofran Inj) 4 mg Q6H PRN IV NAUSEA AND/OR VOMITING Last administered on 09/24/16 06:43; Admin Dose 4 MG; Start 09/23/16 at 00:30 Acetaminophen (Tylenol Tab) 650 mg Q6H PRN PO PAIN LEVEL 1-3 OR FEVER Last administered on 09/23/16 17:09; Admin Dose 650 MG; Start 09/23/16 at 00:30 Morphine Sulfate (morphine) 2 mg Q4H PRN IV SEVERE PAIN LEVEL 7-10 Last administered on 09/24/16 06:52; Admin Dose 2 MG; Start 09/23/16 at 00:30 Pantoprazole (Protonix Iv) 40 mg DAILY@06 IV Last administered on 09/24/16 05: 09; Admin Dose 40 MG; Start 09/23/16 at 06:00 Hydromorphone HCl 1 mg 1 mg Q4H PRN IV PAIN Last administered on 09/24/16 09: 37; Admin Dose 1 MG; Start 09/23/16 at 05:00 Ceftriaxone Sodium 50 ml @ 100 mls/hr Q24H IVPB Last administered on 05:09; Admin Dose 100 MLS/HR; Start 09/23/16 at 05:30 Doxycycline Hyclate/Sodium Chloride (Vibramycin/NS) 250 ml @ 250 mls/hr Q12 IVPB Last administered on 09/24/16 11:57; Admin Dose 250 MLS/HR; Start at 09:00 Hydromorphone HCl (Dilaudid) 1 mg Q4H PRN IV PAIN; Start 09/23/16 at 05:30 SLY SHAW MD Sep 24, 2016 16:42
--- NOTE | 2016-09-24 17:18 | RADRPT ---
Vent Rate: 68 bpm RR Interval: 0 msec IL Interval: 138 msec QRS Duration: 92 msec QT Interval: 386 msec QTC Interval: 410 msec P-R-T Aldrich: 39 - 14 - 35 degrees Normal sinus rhythm Normal ECG Electronically Signed By: Wayne Scott [id number]
[2016-09-25] VITALS (11 sets, daily range): BP systolic 84–111; BP diastolic 55–65; PULSE 68–95; RESP 15–19
[2016-09-25] MEDS: HYDROmorphONE 1 MG/ML SYG IV PRN ×2 (04:29→09:09)
[2016-09-25] MEDS: CEFTRIAXONE 1 GM/50 ML (PMX) 50 ML IVPB SCH (05:22)
[2016-09-25] MEDS: PANTOPRAZOLE 40 MG INJ IV SCH (05:22)
[2016-09-25] MEDS: SOD CHLORIDE 0.9% 1,000 ML IV SCH ×5 (06:34→23:36)
[2016-09-25 09:05] LABS: ADD SCAN DIFF NO
[2016-09-25] MEDS: DOXYCYCLINE 100 MG in SOD CHLORIDE 0.9% 250 ML IVPB SCH ×2 (09:07→20:45)
[2016-09-25 09:08] LABS: BASOPHILS % 0.5 % (0.0-2.0); EOSINOPHILS # 0.3 10^3/ul (0.0-0.5); EOSINOPHILS % 3.8 % (0.0-7.0); HEMATOCRIT 30.9 % (37.0-47.0); HEMOGLOBIN 10.8 g/dl (12.0-16.0); LYMPHOCYTES # 3.4 10^3/ul (0.8-2.9); LYMPHOCYTES % 38.9 % (15.0-51.0); MEAN CORPUSCULAR HEMOGLOBIN 28.3 pg (29.0-33.0); MEAN CORPUSCULAR VOLUME 80.9 fl (82.0-101.0); MEAN PLATELET VOLUME 9.9 fl (7.4-10.4); MONOCYTE # 0.6 10^3/ul (0.3-0.9); MONOCYTES % 6.6 % (0.0-11.0); NEUTROPHIL # 4.3 10^3/ul (1.6-7.5); NEUTROPHILS % 49.3 % (39.0-77.0); PLATELET COUNT 180 10^3/UL (140-415); RED BLOOD COUNT 3.82 10^6/ul (4.20-5.40); WHITE BLOOD COUNT 8.6 10^3/ul (4.8-10.8)
[2016-09-25] MEDS: ACETAMINOPHEN 325 MG TAB PO PRN (09:08)
[2016-09-25] MEDS: ONDANSETRON 4 MG INJ IV PRN (09:08)
[2016-09-25 09:36] LABS: CALCIUM 8.8 mg/dl (8.4-10.2); CREATININE 0.53 mg/dl (0.44-1.00); POTASSIUM 4.1 mmol/L (3.5-5.1)
[2016-09-25 09:37] LABS: MAGNESIUM 1.7 mg/dl (1.7-2.5); PHOSPHORUS 3.5 mg/dl (2.5-4.9)
--- NOTE | 2016-09-25 12:11 | CONS ---
Date/Time of Note Date/Time of Note DATE: 09/25/16 TIME: 12:08 Assessment/Plan Assessment/Plan Chief Complaint/Hosp Course Alert feels much better still having headaches but improved, no fevers looks comfortable Temperature 98.4 pulse 60 respirations 17 blood pressure 105/61 saturation 99 on room air WBC 8.6 H&H 10.8 and 30.9 platelets 180 no shift BUN 5 creatinine 0.53 Microbiology: Blood and urine culture remain negative CT of the abdomen mantle and pelvis on admission revealed bilateral lower lobe consolidation, bilateral trace pleural effusions. Multiple calcified gallstones without pericholecystic fluid, biliary ductal dilation. Negative for intra-abdominal free air or abscesses Brain CT was negative Antibiotics: Doxycycline, Rocephin Physical examination: Obese, well-developed middle-aged woman who is alert in no distress. Head atraumatic normocephalic, sclera nonicteric, bugle mucosa pink. Neck is supple, no nuchal rigidity. Chest rise symmetrical, breath sounds clear. Abdomen soft bowel tones present no tenderness on palpation. Extremities without cyanosis edema Assessment: 1. Status post sepsis with fevers leukocytosis tachycardia 2. Status post recent d&c 3. Bilateral lower lobe consolidation but no evidence of pneumonia 4. Obesity Plan: No fevers, overall improving, continue present care, antibiotics, follow TELE[employer]ION MAINTE[employer]CE [employer] recommendations. Discussed with patient and RN Problems: Consultation Date/Type/Reason Admit Date/Time Sep 22, 2016 at 22:22 Type of Consultation: ID Exam/Review of Systems Vital Signs Vitals Vital Signs Date Time Temp Pulse Resp B/P Pulse Ox O2 Delivery O2 Flow Rate FiO2 09/25/16 12:04 68 09/25/16 11:40 98.4 17 84/55 98 09/25/16 01:44 2.0 09/24/16 20:00 Nasal Cannula Intake and Output 09/24/16 09/24/16 09/25/16 15:00 23:00 07:00 Intake Total 1300 ml 1050 ml 400 ml Output Total 900 ml Balance 400 ml 1050 ml 400 ml Results Result Diagram: 09/25/16 0803 09/25/16 0803 Results 24 hrs Laboratory Tests Test 09/25/16 08:03 White Blood Count 8.6 Red Blood Count 3.82 L Hemoglobin 10.8 L Hematocrit 30.9 L Mean Corpuscular Volume 80.9 L Mean Corpuscular Hemoglobin 28.3 L Mean Corpuscular Hemoglobin Concent 35.0 Red Cell Distribution Width 14.0 Platelet Count 180 # Mean Platelet Volume 9.9 Neutrophils % 49.3 Lymphocytes % 38.9 Monocytes % 6.6 Eosinophils % 3.8 Basophils % 0.5 Nucleated Red Blood Cells % 0.0 Neutrophils # 4.3 Lymphocytes # 3.4 H Monocytes # 0.6 Eosinophils # 0.3 Basophils # 0.0 Nucleated Red Blood Cells # 0.0 Sodium Level 135 Potassium Level 4.1 Chloride Level 102 Carbon Dioxide Level 25 Anion Gap 12 Blood Urea Nitrogen 5 L Creatinine 0.53 Glucose Level 84 Calcium Level 8.8 Phosphorus Level 3.5 Magnesium Level 1.7 Medications Medications Current Medications Sodium Chloride (NS) 1,000 ml @ 125 mls/hr Q8H IV Last administered on 09:08; Admin Dose 125 MLS/HR; Start 09/23/16 at 00:23 Ondansetron HCl (Zofran Inj) 4 mg Q6H PRN IV NAUSEA AND/OR VOMITING Last administered on 09/25/16 09:08; Admin Dose 4 MG; Start 09/23/16 at 00:30 Acetaminophen (Tylenol Tab) 650 mg Q6H PRN PO PAIN LEVEL 1-3 OR FEVER Last administered on 09/25/16 09:08; Admin Dose 650 MG; Start 09/23/16 at 00:30 Morphine Sulfate (morphine) 2 mg Q4H PRN IV SEVERE PAIN LEVEL 7-10 Last administered on 09/24/16 18:11; Admin Dose 2 MG; Start 09/23/16 at 00:30 Pantoprazole (Protonix Iv) 40 mg DAILY@06 IV Last administered on 09/25/16 05: 22; Admin Dose 40 MG; Start 09/23/16 at 06:00 Hydromorphone HCl 1 mg 1 mg Q4H PRN IV PAIN Last administered on 09/25/16 09: 09; Admin Dose 1 MG; Start 09/23/16 at 05:00 Ceftriaxone Sodium 50 ml @ 100 mls/hr Q24H IVPB Last administered on 05:22; Admin Dose 100 MLS/HR; Start 09/23/16 at 05:30 Doxycycline Hyclate/Sodium Chloride (Vibramycin/NS) 250 ml @ 250 mls/hr Q12 IVPB Last administered on 09/25/16t 09:07; Admin Dose 250 MLS/HR; Start at 09:00 Hydromorphone HCl (Dilaudid) 1 mg Q4H PRN IV PAIN; Start 09/23/16 at 05:30 BELLE BOBO NP Sep 25, 2016 12:10
--- NOTE | 2016-09-25 14:53 | PN ---
Date/Time of Note Date/Time of Note DATE: 09/25/16 TIME: 14:48 Assessment/Plan VTE Prophylaxis VTE Prophylaxis Intervention: SCD's Lines/Catheters IV C[facility]ter Type [facility]from [facility] Peripheral IV Urinary Cath still in place: No Assessment/Plan Chief Complaint/Hosp Course 1. Sepsis. Suspected infection. The patient is status post recent D&C. Status post evaluation by TOU[employer]ST CAMP ATTENDANT who agreed with continuing the current antibiotics. No evidence of septic shock. Infectious diseases following the patient. 2. Suspected endometritis. Pelvic ultrasound unremarkable. Continue antibiotics as per TOU[employer] CAMP ATTENDANT recommendations. 3. Abdominal pain. Resolved. CT scan of the abdomen and pelvis showing multiple calcified gallstones within a contracted gallbladder with no pericholecystic fluid or biliary ductal dilatation. Abdominal pain is probably secondary to underlying genitourinary infection. Right upper quadrant ultrasound showing cholelithiasis with no evidence of cholecystitis. 4. Bilateral lower lobe consolidation. Probably atelectasis. Continue the patient on incentive spirometry. 5. Microcytic, hypochromic anemia. Iron panel showing iron deficiency. Will start the patient on iron supplements. 6. Fluids, electrolytes, and nutrition. Regular diet. 7. DVT prophylaxis. Bilateral sequential compression devices. 8. Gastrointestinal prophylaxis. Proton pump inhibitors. 9. Plan. Continue antibiotics. Continue TOURI[employer] CAMP ATTENDANT and ID recommendations. Encourage incentive spirometry. Encourage out of bed and ambulation. Case discussed with . Problems: Subjective 24 Hr Interval Summary Free Text/Dictation The patient remains afebrile. Continues to have some headache. Exam/Review of Systems Vital Signs Vitals Vital Signs Date Time Temp Pulse Resp B/P Pulse Ox O2 Delivery O2 Flow Rate FiO2 09/25/16 12:20 2.0 09/25/16 12:04 68 09/25/16 11:40 98.4 17 84/55 98 09/24/16 20:00 Nasal Cannula Intake and Output 09/24/16 09/24/16 09/25/16 15:00 23:00 07:00 Intake Total 1300 ml 1050 ml 400 ml Output Total 900 ml Balance 400 ml 1050 ml 400 ml Exam General: Adequately build 26 year-old female lying in bed in no apparent distress. HEENT: Normocephalic, atraumatic. Eyes: Anicteric sclerae, conjunctivae clear. ENT: Nasal septum midline, oral mucosa moist. Neck supple, no JVD noticed. Respiratory: Bilaterally clear breath sounds. No use of accessory muscles of respiration. No adventitious breath sounds. Cardiovascular: S1, S2 heard. No murmurs or gallops. Abdomen: Soft, nontender, and nondistended. Bowel sounds positive in all 4 quadrants. Genitourinary: Deferred. Extremities: No cyanosis, no clubbing, no edema. Peripheral pulses palpable. Neurologic: Cranial nerves II through XII grossly intact. The patient is awake, alert, and oriented. Skin: Normal skin turgor. No skin rashes. Results Result Diagram: 09/25/1680209/25/16802 Results 24 hrs Laboratory Tests Test 09/25/16 08:03 White Blood Count 8.6 Red Blood Count 3.82 L Hemoglobin 10.8 L Hematocrit 30.9 L Mean Corpuscular Volume 80.9 L Mean Corpuscular Hemoglobin 28.3 L Mean Corpuscular Hemoglobin Concent 35.0 Red Cell Distribution Width 14.0 Platelet Count 180 # Mean Platelet Volume 9.9 Neutrophils % 49.3 Lymphocytes % 38.9 Monocytes % 6.6 Eosinophils % 3.8 Basophils % 0.5 Nucleated Red Blood Cells % 0.0 Neutrophils # 4.3 Lymphocytes # 3.4 H Monocytes # 0.6 Eosinophils # 0.3 Basophils # 0.0 Nucleated Red Blood Cells # 0.0 Sodium Level 135 Potassium Level 4.1 Chloride Level 102 Carbon Dioxide Level 25 Anion Gap 12 Blood Urea Nitrogen 5 L Creatinine 0.53 Glucose Level 84 Calcium Level 8.8 Phosphorus Level 3.5 Magnesium Level 1.7 Medications Medications Current Medications Sodium Chloride (NS) 1,000 ml @ 125 mls/hr Q8H IV Last administered on 09:08; Admin Dose 125 MLS/HR; Start 09/23/16 at 00:23 Ondansetron HCl (Zofran Inj) 4 mg Q6H PRN IV NAUSEA AND/OR VOMITING Last administered on 09/25/16 09:08; Admin Dose 4 MG; Start 09/23/16 at 00:30 Acetaminophen (Tylenol Tab) 650 mg Q6H PRN PO PAIN LEVEL 1-3 OR FEVER Last administered on 09/25/16 09:08; Admin Dose 650 MG; Start 09/23/16 at 00:30 Morphine Sulfate (morphine) 2 mg Q4H PRN IV SEVERE PAIN LEVEL 7-10 Last administered on 09/24/16 18:11; Admin Dose 2 MG; Start 09/23/16 at 00:30 Pantoprazole (Protonix Iv) 40 mg DAILY@06 IV Last administered on 09/25/16 05: 22; Admin Dose 40 MG; Start 09/23/16 at 06:00 Hydromorphone HCl 1 mg 1 mg Q4H PRN IV PAIN Last administered on 09/25/16 09: 09; Admin Dose 1 MG; Start 09/23/16 at 05:00 Ceftriaxone Sodium 50 ml @ 100 mls/hr Q24H IVPB Last administered on 05:22; Admin Dose 100 MLS/HR; Start 09/23/16 at 05:30 Doxycycline Hyclate/Sodium Chloride (Vibramycin/NS) 250 ml @ 250 mls/hr Q12 IVPB Last administered on 09/25/16 09:07; Admin Dose 250 MLS/HR; Start at 09:00 Hydromorphone HCl (Dilaudid) 1 mg Q4H PRN IV PAIN; Start 09/23/16 at 05:30 SARITA BENSON NP Sep 25, 2016 14:53
[2016-09-25] MEDS: SOD FERRIC GLUC COMPLX 125 MG in SOD CHLORIDE 0.9% 100 ML IVPB SCH (17:02)
--- NOTE | 2016-09-25 17:25 | CONS ---
Date/Time of Note Date/Time of Note DATE: 09/25/16 TIME: 17:22 Consult Date/Type/Reason Admit Date/Time Sep 22, 2016 at 22:22 Initial Consult Date Possible endometritis, post vaginal delivery Type of Consultation: ID Subjective Patient comfortable. Denies any fever or chills. Denies any abdominal pain. Pain well controlled with p.o. pain medication. Denies any abnormal vaginal discharge. Objective Vital Signs Date Time Temp Pulse Resp B/P Pulse Ox O2 Delivery O2 Flow Rate FiO2 09/25/16 16:04 74 09/25/16 15:24 98.4 18 87/55 99 09/25/16 12:20 2.0 09/24/16 20:00 Nasal Cannula Intake and Output 09/24/16 09/24/16 09/25/16 14:59 22:59 06:59 Intake Total 1300 ml 1050 ml 400 ml Output Total 900 ml Balance 400 ml 1050 ml 400 ml Exam General appearance: Alert and oriented 4. Does not appear to be in any acute distress. Abdomen: Soft, minimal fundal tenderness, no abdominal tenderness. No guarding , no rigidity, Extremities: No calf tenderness, no click no edema. Negative Homans sign Hematology - 72 Hrs Test 09/23/16 01:35 09/24/16 07:33 09/25/16 08:03 White Blood Count 15.610^3/ul (4.8-10.8) H 7.910^3/ul (4.8-10.8) # 8.610^3/ul (4.8-10.8) Red Blood Count 3.6010^6/ul (4.20-5.40) L 3.4810^6/ul (4.20-5.40) L 3.8210^6/ul (4.20-5.40) L Hemoglobin 10.6g/dl (12.0-16.0) L 10.0g/dl (12.0-16.0) L 10.8g/dl (12.0-16.0) L Hematocrit 29.0% (37.0-47.0) L 28.4% (37.0-47.0) L 30.9% (37.0-47.0) L Mean Corpuscular Volume 80.6fl (82.0-101.0) L 81.6fl (82.0-101.0) L 80.9fl (82.0-101.0) L Mean Corpuscular Hemoglobin 29.4pg (29.0-33.0) 28.7pg (29.0-33.0) L 28.3pg (29.0-33.0) L Mean Corpuscular Hemoglobin Concent 36.6g/dl (32.0-37.0) 35.2g/dl (32.0-37.0) 35.0g/dl (32.0-37.0) Red Cell Distribution Width 14.1% (11.5-14.5) 14.4% (11.5-14.5) 14.0% (11.5-14.5) Platelet Count 61632^3/UL (140-415) 40930^3/UL (140-415) 69617^3/UL (140-415) # Mean Platelet Volume 9.7fl (7.4-10.4) 10.8fl (7.4-10.4) H 9.9fl (7.4-10.4) Neutrophils % 89.4% (39.0-77.0) H 69.7% (39.0-77.0) 49.3% (39.0-77.0) Lymphocytes % 7.1% (15.0-51.0) L 22.5% (15.0-51.0) 38.9% (15.0-51.0) Monocytes % 2.6% (0.0-11.0) 5.5% (0.0-11.0) 6.6% (0.0-11.0) Eosinophils % 0.0% (0.0-7.0) 1.0% (0.0-7.0) 3.8% (0.0-7.0) Basophils % 0.2% (0.0-2.0) 0.4% (0.0-2.0) 0.5% (0.0-2.0) Nucleated Red Blood Cells % 0.0/100WBC (0.0-0.0) 0.0/100WBC (0.0-0.0) 0.0/100WBC (0.0-0.0) Neutrophils # 13.910^3/ul (1.6-7.5) H 5.510^3/ul (1.6-7.5) 4.310^3/ul (1.6-7.5) Lymphocytes # 1.110^3/ul (0.8-2.9) 1.810^3/ul (0.8-2.9) 3.410^3/ul (0.8-2.9) H Monocytes # 0.410^3/ul (0.3-0.9) 0.410^3/ul (0.3-0.9) 0.610^3/ul (0.3-0.9) Eosinophils # 0.010^3/ul (0.0-0.5) 0.110^3/ul (0.0-0.5) 0.310^3/ul (0.0-0.5) Basophils # 0.010^3/ul (0.0-0.1) 0.010^3/ul (0.0-0.1) 0.010^3/ul (0.0-0.1) Nucleated Red Blood Cells # 0.010^3/ul (0.0-0.0) 0.010^3/ul (0.0-0.0) 0.010^3/ul (0.0-0.0) Chemistry Test 09/23/16 01:35 09/24/16 07:33 09/25/16 08:03 Sodium Level 139mmol/L (135-144) 129mmol/L (135-144) L 135mmol/L (135-144) Potassium Level 4.0mmol/L (3.5-5.1) 3.9mmol/L (3.5-5.1) 4.1mmol/L (3.5-5.1) Chloride Level 108mmol/L (97-110) 101mmol/L (97-110) 102mmol/L (97-110) Carbon Dioxide Level 22mmol/L (21-31) 26mmol/L (21-31) 25mmol/L (21-31) Anion Gap 13 (8-16) 6 (8-16) L 12 (8-16) Blood Urea Nitrogen 11mg/dl (7-20) 6mg/dl (7-20) L 5mg/dl (7-20) L Creatinine 0.64mg/dl (0.44-1.00) 0.49mg/dl (0.44-1.00) 0.53mg/dl (0.44-1.00) Glucose Level 94mg/dl (70-220) 86mg/dl (70-220) 84mg/dl (70-220) Calcium Level 8.3mg/dl (8.4-10.2) L 8.8mg/dl (8.4-10.2) 8.8mg/dl (8.4-10.2) Total Bilirubin 1.1mg/dl (0.2-1.3) 0.4mg/dl (0.2-1.3) Direct Bilirubin 0.00mg/dl (0.00-0.20) 0.00mg/dl (0.00-0.20) Indirect Bilirubin 1.1mg/dl (0-1.1) 0.4mg/dl (0-1.1) Aspartate Amino Transf (AST/SGOT) 37IU/L (15-46) 44IU/L (15-46) Alanine Aminotransferase (ALT/SGPT) 57IU/L (13-69) 65IU/L (13-69) Alkaline Phosphatase 50IU/L (42-121) 72IU/L (42-121) Total Protein 6.4g/dl (6.1-8.1) 6.1g/dl (6.1-8.1) Albumin 3.7g/dl (3.3-4.9) 3.4g/dl (3.3-4.9) Globulin 2.70g/dl (1.3-3.2) 2.70g/dl (1.3-3.2) Albumin/Globulin Ratio 1.37 1.25 Hemoglobin A1c 4.8% (0-5.9) Phosphorus Level 3.1mg/dl (2.5-4.9) 3.5mg/dl (2.5-4.9) Magnesium Level 1.7mg/dl (1.7-2.5) 1.7mg/dl (1.7-2.5) Iron Level 33ug/dl (35-150) L Total Iron Binding Capacity 317ug/dl (241-421) Percent Iron Saturation 10% SAT (22-52) L Ferritin 118.0ng/ml (6.2-137.0) Triglycerides Level 137mg/dl (0-149) Cholesterol Level 137mg/dl (100-200) LDL Cholesterol, Calculated 78mg/dl HDL Cholesterol 32mg/dl (33-83) L Cholesterol/HDL Ratio 4.2RATIO Thyroid Stimulating Hormone (TSH) 2.180MIU/L (0.465-4.680) Free Thyroxine 1.28ng/dl (0.79-2.35) Results/Medications Result Diagram: 09/25/1680209/25/16802 Results 24 hrs Laboratory Tests Test 09/25/16 08:03 White Blood Count 8.6 Red Blood Count 3.82 L Hemoglobin 10.8 L Hematocrit 30.9 L Mean Corpuscular Volume 80.9 L Mean Corpuscular Hemoglobin 28.3 L Mean Corpuscular Hemoglobin Concent 35.0 Red Cell Distribution Width 14.0 Platelet Count 180 # Mean Platelet Volume 9.9 Neutrophils % 49.3 Lymphocytes % 38.9 Monocytes % 6.6 Eosinophils % 3.8 Basophils % 0.5 Nucleated Red Blood Cells % 0.0 Neutrophils # 4.3 Lymphocytes # 3.4 H Monocytes # 0.6 Eosinophils # 0.3 Basophils # 0.0 Nucleated Red Blood Cells # 0.0 Sodium Level 135 Potassium Level 4.1 Chloride Level 102 Carbon Dioxide Level 25 Anion Gap 12 Blood Urea Nitrogen 5 L Creatinine 0.53 Glucose Level 84 Calcium Level 8.8 Phosphorus Level 3.5 Magnesium Level 1.7 Medications Current Medications Sodium Chloride (NS) 1,000 ml @ 125 mls/hr Q8H IV Last administered on 09:08; Admin Dose 125 MLS/HR; Start 09/23/16 at 00:23 Ondansetron HCl (Zofran Inj) 4 mg Q6H PRN IV NAUSEA AND/OR VOMITING Last administered on 09/25/16 09:08; Admin Dose 4 MG; Start 09/23/16 at 00:30 Acetaminophen (Tylenol Tab) 650 mg Q6H PRN PO PAIN LEVEL 1-3 OR FEVER Last administered on 09/25/16 09:08; Admin Dose 650 MG; Start 09/23/16 at 00:30 Morphine Sulfate (morphine) 2 mg Q4H PRN IV SEVERE PAIN LEVEL 7-10 Last administered on 09/24/16 18:11; Admin Dose 2 MG; Start 09/23/16 at 00:30 Pantoprazole (Protonix Iv) 40 mg DAILY@06 IV Last administered on 09/25/16 05: 22; Admin Dose 40 MG; Start 09/23/16 at 06:00 Hydromorphone HCl 1 mg 1 mg Q4H PRN IV PAIN Last administered on 09/25/16 09: 09; Admin Dose 1 MG; Start 09/23/16 at 05:00 Ceftriaxone Sodium 50 ml @ 100 mls/hr Q24H IVPB Last administered on 05:22; Admin Dose 100 MLS/HR; Start 09/23/16 at 05:30 Doxycycline Hyclate/Sodium Chloride (Vibramycin/NS) 250 ml @ 250 mls/hr Q12 IVPB Last administered on 09/25/16 09:07; Admin Dose 250 MLS/HR; Start at 09:00 Hydromorphone HCl 1 mg 1 mg Q4H PRN IV PAIN; Start 09/23/16 at 05:30 Ferric Sodium Gluconate Complex/ Sodium Chloride (Ferrlecit/NS) 110 ml @ 100 mls/hr Q24H IVPB Last administered on 09/25/16 17:02; Admin Dose 100 MLS/HR; Start 09/25/16 at 16:30; Stop 09/27/16 at 17:35 Assessment/Plan Chief Complaint/Hosp Course Hospital day #3 Admitted for sepsis Fever and abdominal pain post D&C. Cannot rule out endometritis Status post ceftriaxone and doxycycline Leukocytosis improved as well as fever Overall improving Minimal fundal tenderness Has been afebrile for more than 24 hours Patient noted also has some radiologic finding consistent with pneumonia follow- up. by primary team Continue to follow-up in-house If remains afebrile for 48 hours and stable can stop IV Rocephin and doxycycline. No need for outpatient antibiotic therapy for endometritis after discharge. Needs to have a follow-up after discharge from the hospital in a week with a MACHINE LEARNING INTERN as outpatient with a strict precaution . Management of chest x-ray finding, questionable for pneumonia by primary team. Problems: WALT PRICE MD Sep 25, 2016 17:25
[2016-09-25] MEDS: morphine 2 MG INJ IV PRN (20:46)
[2016-09-26] VITALS (11 sets, daily range): BP systolic 85–106; BP diastolic 50–62; PULSE 65–80; RESP 15–18
[2016-09-26] MEDS: morphine 2 MG INJ IV PRN (03:08)
[2016-09-26] MEDS: CEFTRIAXONE 1 GM/50 ML (PMX) 50 ML IVPB SCH (05:40)
[2016-09-26] MEDS: PANTOPRAZOLE 40 MG INJ IV SCH (05:40)
[2016-09-26] MEDS: HYDROmorphONE 1 MG/ML SYG IV PRN (05:55)
[2016-09-26] MEDS: ACETAMINOPHEN 325 MG TAB PO PRN ×2 (05:56→17:04)
[2016-09-26 08:04] LABS: ADD SCAN DIFF NO; BASOPHIL # 0.1 10^3/ul (0.0-0.1); BASOPHILS % 0.7 % (0.0-2.0); EOSINOPHILS # 0.3 10^3/ul (0.0-0.5); EOSINOPHILS % 4.4 % (0.0-7.0); HEMATOCRIT 29.1 % (37.0-47.0); HEMOGLOBIN 10.1 g/dl (12.0-16.0); LYMPHOCYTES # 2.7 10^3/ul (0.8-2.9); LYMPHOCYTES % 37.2 % (15.0-51.0); MEAN CORPUSCULAR HEMOGLOBIN 28.1 pg (29.0-33.0); MEAN CORPUSCULAR HGB CONC 34.7 g/dl (32.0-37.0); MEAN CORPUSCULAR VOLUME 80.8 fl (82.0-101.0); MEAN PLATELET VOLUME 9.6 fl (7.4-10.4); MONOCYTE # 0.6 10^3/ul (0.3-0.9); MONOCYTES % 7.7 % (0.0-11.0); NEUTROPHIL # 3.4 10^3/ul (1.6-7.5); NEUTROPHILS % 46.4 % (39.0-77.0); PLATELET COUNT 199 10^3/UL (140-415); RED CELL DISTRIBUTION WIDTH 14.1 % (11.5-14.5); WHITE BLOOD COUNT 7.3 10^3/ul (4.8-10.8)
[2016-09-26] MEDS: SOD CHLORIDE 0.9% 1,000 ML IV SCH ×3 (08:14→23:52)
[2016-09-26] MEDS: DOXYCYCLINE 100 MG in SOD CHLORIDE 0.9% 250 ML IVPB SCH ×2 (08:17→20:34)
[2016-09-26 08:27] LABS: MAGNESIUM 1.8 mg/dl (1.7-2.5); PHOSPHORUS 4.3 mg/dl (2.5-4.9)
[2016-09-26 08:43] LABS: CALCIUM 8.9 mg/dl (8.4-10.2); CREATININE 0.5 mg/dl (0.44-1.00); POTASSIUM 3.7 mmol/L (3.5-5.1)
--- NOTE | 2016-09-26 09:08 | PN ---
Date/Time of Note Date/Time of Note DATE: 09/26/16 TIME: 09:05 Assessment/Plan VTE Prophylaxis VTE Prophylaxis Intervention: SCD's Lines/Catheters IV Catheter Type (from [facility]): Peripheral IV Urinary Cath still in place: No Assessment/Plan Chief Complaint/Hosp Course 1. Sepsis. Suspected infection. The patient is status post recent D&C. Status post evaluation by HELP DESK REPRESENTATIVE who agreed with continuing the current antibiotics. No evidence of septic shock. Infectious diseases following the patient. 2. Suspected endometritis. Pelvic ultrasound unremarkable. Continue antibiotics as per HELP DESK REPRESENTATIVE recommendations. 3. Abdominal pain. Resolved. CT scan of the abdomen and pelvis showing multiple calcified gallstones within a contracted gallbladder with no pericholecystic fluid or biliary ductal dilatation. Abdominal pain is probably secondary to underlying genitourinary infection. Right upper quadrant ultrasound showing cholelithiasis with no evidence of cholecystitis. 4. Bilateral lower lobe consolidation. Probably atelectasis. Continue the patient on incentive spirometry. 5. Microcytic, hypochromic anemia. Iron panel showing iron deficiency. Continue iron supplements. 6. Fluids, electrolytes, and nutrition. Regular diet. 7. DVT prophylaxis. Bilateral sequential compression devices. 8. Gastrointestinal prophylaxis. Proton pump inhibitors. 9. Plan. Continue antibiotics. Continue HELP DESK REPRESENTATIVE and ID recommendations. Encourage incentive spirometry. Encourage out of bed and ambulation. Start as needed Fioricet because of continuous headaches despite analgesics. Case discussed with . Problems: Subjective 24 Hr Interval Summary Free Text/Dictation Patient remains afebrile. Continues to complain of headache. Exam/Review of Systems Vital Signs Vitals Vital Signs Date Time Temp Pulse Resp B/P Pulse Ox O2 Delivery O2 Flow Rate FiO2 09/26/16 07:31 98.0 62 18 85/50 99 09/26/16 00:01 2.0 09/25/16 19:53 Nasal Cannula Intake and Output 09/25/16 09/25/16 09/26/16 15:00 23:00 07:00 Intake Total 400 ml Balance 400 ml Exam General: Adequately build 26 year-old female lying in bed in no apparent distress. HEENT: Normocephalic, atraumatic. Eyes: Anicteric sclerae, conjunctivae clear. ENT: Nasal septum midline, oral mucosa moist. Neck supple, no JVD noticed. Respiratory: Bilaterally clear breath sounds. No use of accessory muscles of respiration. No adventitious breath sounds. Cardiovascular: S1, S2 heard. No murmurs or gallops. Abdomen: Soft, nontender, and nondistended. Bowel sounds positive in all 4 quadrants. Genitourinary: Deferred. Extremities: No cyanosis, no clubbing, no edema. Peripheral pulses palpable. Neurologic: Cranial nerves II through XII grossly intact. The patient is awake, alert, and oriented. Skin: Normal skin turgor. No skin rashes. Results Result Diagram: 09/26/1671309/26/16713 Results 24 hrs Laboratory Tests Test 09/26/16 07:14 White Blood Count 7.3 Red Blood Count 3.60 L Hemoglobin 10.1 L Hematocrit 29.1 L Mean Corpuscular Volume 80.8 L Mean Corpuscular Hemoglobin 28.1 L Mean Corpuscular Hemoglobin Concent 34.7 Red Cell Distribution Width 14.1 Platelet Count 199 Mean Platelet Volume 9.6 Neutrophils % 46.4 Lymphocytes % 37.2 Monocytes % 7.7 Eosinophils % 4.4 Basophils % 0.7 Nucleated Red Blood Cells % 0.0 Neutrophils # 3.4 Lymphocytes # 2.7 Monocytes # 0.6 Eosinophils # 0.3 Basophils # 0.1 Nucleated Red Blood Cells # 0.0 Sodium Level 136 Potassium Level 3.7 Chloride Level 105 Carbon Dioxide Level 25 Anion Gap 10 Blood Urea Nitrogen 5 L Creatinine 0.50 Glucose Level 84 Calcium Level 8.9 Phosphorus Level 4.3 Magnesium Level 1.8 Medications Medications Current Medications Sodium Chloride (NS) 1,000 ml @ 125 mls/hr Q8H IV Last administered on 08:14; Admin Dose 125 MLS/HR; Start 09/23/16 at 00:23 Ondansetron HCl (Zofran Inj) 4 mg Q6H PRN IV NAUSEA AND/OR VOMITING Last administered on 09/25/16 09:08; Admin Dose 4 MG; Start 09/23/16 at 00:30 Acetaminophen (Tylenol Tab) 650 mg Q6H PRN PO PAIN LEVEL 1-3 OR FEVER Last administered on 09/26/16 05:56; Admin Dose 650 MG; Start 09/23/16 at 00:30 Morphine Sulfate (morphine) 2 mg Q4H PRN IV SEVERE PAIN LEVEL 7-10 Last administered on 09/26/16 03:08; Admin Dose 2 MG; Start 09/23/16 at 00:30 Pantoprazole (Protonix Iv) 40 mg DAILY@06 IV Last administered on 09/26/16 05: 40; Admin Dose 40 MG; Start 09/23/16 at 06:00 Hydromorphone HCl 1 mg 1 mg Q4H PRN IV PAIN Last administered on 09/26/16 05: 55; Admin Dose 1 MG; Start 09/23/16 at 05:00 Ceftriaxone Sodium 50 ml @ 100 mls/hr Q24H IVPB Last administered on 05:40; Admin Dose 100 MLS/HR; Start 09/23/16 at 05:30 Doxycycline Hyclate/Sodium Chloride (Vibramycin/NS) 250 ml @ 250 mls/hr Q12 IVPB Last administered on 09/26/16 08:17; Admin Dose 250 MLS/HR; Start at 09:00 Hydromorphone HCl 1 mg 1 mg Q4H PRN IV PAIN; Start 09/23/16 at 05:30 Ferric Sodium Gluconate Complex/ Sodium Chloride (Ferrlecit/NS) 110 ml @ 100 mls/hr Q24H IVPB Last administered on 09/25/16 17:02; Admin Dose 100 MLS/HR; Start 09/25/16 at 16:30; Stop 09/27/16 at 17:35 SARITA BENSON NP Sep 26, 2016 09:08
[2016-09-26] MEDS ORDERED: ACET/BUTAL/CAFF TAB PO PRN (09:30)
--- NOTE | 2016-09-26 12:52 | CONS ---
Date/Time of Note Date/Time of Note DATE: 09/26/16 TIME: 12:50 Assessment/Plan Assessment/Plan Chief Complaint/Hosp Course Alert feels much better, no fevers looks comfortable Microbiology: Blood and urine culture remain negative CT of the abdomen mantle and pelvis on admission revealed bilateral lower lobe consolidation, bilateral trace pleural effusions. Multiple calcified gallstones without pericholecystic fluid, biliary ductal dilation. Negative for intra-abdominal free air or abscesses Brain CT was negative Antibiotics: Doxycycline, Rocephin Physical examination: Obese, well-developed middle-aged woman who is alert in no distress. Head atraumatic normocephalic, sclera nonicteric, bugle mucosa pink. Neck is supple, no nuchal rigidity. Chest rise symmetrical, breath sounds clear. Abdomen soft bowel tones present no tenderness on palpation. Extremities without cyanosis edema Assessment: 1. Status post sepsis with fevers leukocytosis tachycardia 2. Status post recent d&c, possible endometritis 3. Bilateral lower lobe consolidation but no evidence of pneumonia 4. Obesity Plan: Remains stable, continue present care, follow [facility] SEC[facility] recommendations, anticipate discharge of antibiotics if remains afebrile Discussed with patient and RN Problems: Consultation Date/Type/Reason Admit Date/Time Sep 22, 2016 at 22:22 Type of Consultation: ID Exam/Review of Systems Vital Signs Vitals Vital Signs Date Time Temp Pulse Resp B/P Pulse Ox O2 Delivery O2 Flow Rate FiO2 09/26/16 12:23 98.0 71 18 101/53 99 09/26/16 00:01 2.0 09/25/16 19:53 Nasal Cannula Intake and Output 09/25/16 09/25/16 09/26/16 15:00 23:00 07:00 Intake Total 400 ml Balance 400 ml Results Result Diagram: 09/26/16 0714 09/26/16 0714 Results 24 hrs Laboratory Tests Test 09/26/16 07:14 White Blood Count 7.3 Red Blood Count 3.60 L Hemoglobin 10.1 L Hematocrit 29.1 L Mean Corpuscular Volume 80.8 L Mean Corpuscular Hemoglobin 28.1 L Mean Corpuscular Hemoglobin Concent 34.7 Red Cell Distribution Width 14.1 Platelet Count 199 Mean Platelet Volume 9.6 Neutrophils % 46.4 Lymphocytes % 37.2 Monocytes % 7.7 Eosinophils % 4.4 Basophils % 0.7 Nucleated Red Blood Cells % 0.0 Neutrophils # 3.4 Lymphocytes # 2.7 Monocytes # 0.6 Eosinophils # 0.3 Basophils # 0.1 Nucleated Red Blood Cells # 0.0 Sodium Level 136 Potassium Level 3.7 Chloride Level 105 Carbon Dioxide Level 25 Anion Gap 10 Blood Urea Nitrogen 5 L Creatinine 0.50 Glucose Level 84 Calcium Level 8.9 Phosphorus Level 4.3 Magnesium Level 1.8 Medications Medications Current Medications Sodium Chloride (NS) 1,000 ml @ 125 mls/hr Q8H IV Last administered on 08:14; Admin Dose 125 MLS/HR; Start 09/23/16 at 00:23 Ondansetron HCl (Zofran Inj) 4 mg Q6H PRN IV NAUSEA AND/OR VOMITING Last administered on 09/25/16 09:08; Admin Dose 4 MG; Start 09/23/16 at 00:30 Acetaminophen (Tylenol Tab) 650 mg Q6H PRN PO PAIN LEVEL 1-3 OR FEVER Last administered on 09/26/16 05:56; Admin Dose 650 MG; Start 09/23/16 at 00:30 Morphine Sulfate (morphine) 2 mg Q4H PRN IV SEVERE PAIN LEVEL 7-10 Last administered on 09/26/16 03:08; Admin Dose 2 MG; Start 09/23/16 at 00:30 Pantoprazole (Protonix Iv) 40 mg DAILY@06 IV Last administered on 09/26/16 05: 40; Admin Dose 40 MG; Start 09/23/16 at 06:00 Hydromorphone HCl 1 mg 1 mg Q4H PRN IV PAIN Last administered on 09/26/16 05: 55; Admin Dose 1 MG; Start 09/23/16 at 05:00 Ceftriaxone Sodium 50 ml @ 100 mls/hr Q24H IVPB Last administered on 05:40; Admin Dose 100 MLS/HR; Start 09/23/16 at 05:30 Doxycycline Hyclate/Sodium Chloride (Vibramycin/NS) 250 ml @ 250 mls/hr Q12 IVPB Last administered on 09/26/16 08:17; Admin Dose 250 MLS/HR; Start at 09:00 Hydromorphone HCl 1 mg 1 mg Q4H PRN IV PAIN; Start 09/23/16 at 05:30 Ferric Sodium Gluconate Complex/ Sodium Chloride (Ferrlecit/NS) 110 ml @ 100 mls/hr Q24H IVPB Last administered on 09/25/16t 17:02; Admin Dose 100 MLS/HR; Start 09/25/16 at 16:30; Stop 09/27/16 at 17:35 Acetaminophen/ Butalbital/ Caffeine (Fioricet) 1 tab Q6H PRN PO PAIN; Start at 09:30 BELLE BOBO SUPPLY CHAIN SYSTEMS MANAGER Sep 26, 2016 12:52
--- NOTE | 2016-09-26 16:02 | RADRPT ---
PROCEDURE: XR Chest. CLINICAL INDICATION: Shortness of breath. TECHNIQUE: Single frontal view. COMPARISON: 09/23/2016. FINDINGS: The lungs are clear. The heart size is normal. There is no pleural effusion. There is no pneumothorax. IMPRESSION: 1. Normal chest radiograph. RPTAT: QQ .Yonis Blanchard MD, MD Date Time Electronically viewed and signed by .Yonis Blanchard MD, MD on 09/26/2016 16:01 .R/
[2016-09-26] MEDS: SOD FERRIC GLUC COMPLX 125 MG in SOD CHLORIDE 0.9% 100 ML IVPB SCH (17:23)
[2016-09-27] VITALS: BP 96/57; PULSE 60; RESP 19
[2016-09-27 04:00] VITALS: BP 101/65; PULSE 67; RESP 19
[2016-09-27] MEDS: ACETAMINOPHEN 325 MG TAB PO PRN (04:19)
[2016-09-27] MEDS: ONDANSETRON 4 MG INJ IV PRN (04:26)
[2016-09-27] MEDS: CEFTRIAXONE 1 GM/50 ML (PMX) 50 ML IVPB SCH (04:35)
[2016-09-27] MEDS: HYDROmorphONE 1 MG/ML SYG IV PRN (04:35)
[2016-09-27] MEDS ORDERED: PANTOPRAZOLE (EC) 40 MG TAB PO SCH (06:00)
[2016-09-27] MEDS: SOD CHLORIDE 0.9% 1,000 ML IV SCH ×2 (06:34→08:23)
[2016-09-27 06:47] VITALS: BP 83/54; RESP 18
[2016-09-27 08:00] VITALS: PULSE 56
[2016-09-27 08:02] LABS: ADD SCAN DIFF NO
[2016-09-27 08:22] LABS: BASOPHIL # 0.1 10^3/ul (0.0-0.1); BASOPHILS % 0.6 % (0.0-2.0); EOSINOPHILS # 0.3 10^3/ul (0.0-0.5); EOSINOPHILS % 3.2 % (0.0-7.0); HEMATOCRIT 30.2 % (37.0-47.0); HEMOGLOBIN 10.5 g/dl (12.0-16.0); LYMPHOCYTES # 3.5 10^3/ul (0.8-2.9); LYMPHOCYTES % 37.1 % (15.0-51.0); MEAN CORPUSCULAR HGB CONC 34.8 g/dl (32.0-37.0); MEAN CORPUSCULAR VOLUME 80.5 fl (82.0-101.0); MEAN PLATELET VOLUME 9.7 fl (7.4-10.4); MONOCYTE # 0.8 10^3/ul (0.3-0.9); NEUTROPHIL # 4.5 10^3/ul (1.6-7.5); NEUTROPHILS % 47.4 % (39.0-77.0); NUCLEATED RED BLOOD CELLS% 0.2 /100WBC (0.0-0.0); PLATELET COUNT 248 10^3/UL (140-415); RED BLOOD COUNT 3.75 10^6/ul (4.20-5.40); RED CELL DISTRIBUTION WIDTH 13.7 % (11.5-14.5); WHITE BLOOD COUNT 9.4 10^3/ul (4.8-10.8)
[2016-09-27] MEDS: DOXYCYCLINE 100 MG in SOD CHLORIDE 0.9% 250 ML IVPB SCH (08:22)
[2016-09-27 08:40] LABS: MAGNESIUM 1.8 mg/dl (1.7-2.5); PHOSPHORUS 4.7 mg/dl (2.5-4.9)
[2016-09-27 08:43] LABS: CREATININE 0.49 mg/dl (0.44-1.00); POTASSIUM 3.5 mmol/L (3.5-5.1)
--- NOTE | 2016-09-27 11:31 | PDOCDIS ---
Discharge Instructions DIAGNOSIS Discharge Diagnosis Sepsis. CONDITION Patient Condition: Stable HOME CARE INSTRUCTIONS: Diet Instructions: RegularSpecial Diet: regular ACTIVITY: Activity Restrictions: No Sexual Activity (Until you see your SENIOR ECONOMIST doctor.) OTHER ORDERS: Other Orders: 1. Regular diet. 2. Resume activities as tolerated. No sexual activity until see DOCK SUPERINTENDENT. 3. Follow-up with your SENIOR ECONOMIST in 1 week. 4. Please go to the ER if you continue to have persistent fevers, abdominal pain, or any other unusual signs/symptoms. SARITA BENSON NP Sep 27, 2016 11:31
[2016-09-27] MEDS ORDERED: FER325 PO (11:35)
[2016-09-27 11:39] VITALS: BP 101/62; RESP 18
--- NOTE | 2016-09-27 11:42 | DS ---
Date/Time of Note Date/Time of Note DATE: 09/27/16 TIME: 11:37 Discharge Summary Admission/Discharge Info Admit Date/Time Sep 22, 2016 at 22:22 Discharge Date/Time Discharge Diagnosis 1. Status post sepsis. 2. Endometritis. 3. Microcytic, hypochromic anemia. 4. Iron deficiency. 5. Bilateral lower lobe atelectasis. Patient Condition: Stable Consults 1. Dean Negrete MD, Infectious Diseases. 2. Veronica Ash MD, CHIROPRACTIC PRACTICE MANAGER. 3. Padmini Hyman MD, CHIROPRACTIC PRACTICE MANAGER. Procedures CT Scan of the Abdomen and Pelvis IMPRESSION: 1. Bilateral lower lobe consolidations may all represent atelectasis however without pneumonia. 2. Bilateral basilar trace pleural effusions. 3. Multiple calcified gallstones within a contracted gallbladder is described above. No pericholecystic fluid biliary ductal dilation. Recommend clinical correlation and consideration of a right upper quadrant abdominal ultrasound for further evaluation. 4. No evidence of gastrointestinal disease. Negative for intra-abdominal free air or abscesses. 5. Mild splenomegaly without focal splenic lesions. 6. Tiny fat containing umbilical hernia without herniated bowel or strangulation. Gallbladder Ultrasound IMPRESSION: Cholelithiasis. No evidence of gallbladder wall thickening or pericholecystic fluid. Brain CT IMPRESSION: Negative CT scan of the head without contrast. Pelvic Ultrasound IMPRESSION: Unremarkable ultrasound of the pelvis. CXR IMPRESSION: 1. Normal chest radiograph. Hx of Present Illness Chief complaint: Bilateral lower abdominal pain This is a 26-year-old female who was transferred over here from [facility] for bilateral lower abdominal pain suspected of possible endometritis. Patient was seen there complaining of pain that started yesterday with a fever , and bilateral lower abdominal pain. She 15 days ago had a miscarriage. And then was seen at a clinic where she had a D&C approximately 5 days ago. Her pain started last night at approximately 5 PM. She did have vomiting as well. She still feels nauseated at this time. She is . Allergies: NKDA Medications: None Hospital Course The patient was admitted to inpatient setting. She was started on empiric antibiotics. Pancultures were ordered. CHIROPRACTIC PRACTICE MANAGER consult was called. The patient underwent a pelvic ultrasound that was unremarkable. Patient continued to have persistent fevers and chills. On 09/23/2016, the patient had an episode of significant tachycardia as well as shaking chills. Consequently, the patient was moved to telemetry floor for close monitoring. The patient underwent a CT scan of the abdomen and pelvis that showed bilateral lower lobe consolidations which could represent atelectasis without pneumonia with bilateral trace pleural effusions. The patient's CT also showed multiple calcified gallstones with a contracted gallbladder with no pericholecystic fluid or biliary ductal dilatation. Therefore, the patient underwent a ultrasound of the gallbladder that showed cholelithiasis with no evidence of gallbladder wall thickening or pericholecystic fluid. Hence it was concluded that the patient's abdominal pain was most probably secondary to underlying endometritis. Patient recently had a D&C approximately a week ago prior to the date of hospitalization. The patient also had multiple episodes of headache. The patient underwent a CT scan of the brain that was negative for any acute intracranial findings. The patient denied any history of migraine headaches. The patient's headache could have been most probably is a side effect of analgesics including Dilaudid that she was getting during the hospital course. The patient's headache resolved completely towards the end of the patient's hospital course. The patient was also noticed to have microcytic, hypochromic anemia. The patient was maintained on iron supplements. The patient's H&H remained stable. Patient's dave cultures remained negative. As per CHIROPRACTIC PRACTICE MANAGER, the patient's IV antibiotics can be discontinued if the patient remained afebrile for more than 48 hours and can be discharged home on no antibiotics. The patient has been afebrile for more than 48 hours. The patient will be discharged home off antibiotics. Patient needs to be followed up with the CHIROPRACTIC PRACTICE MANAGER within a week. Discharge Instructions 1. Regular diet. 2. Resume activities as tolerated. No sexual activity until see CHIROPRACTIC PRACTICE MANAGER. 3. Follow-up with your WIRE COINER in 1 week. 4. Please go to the ER if you continue to have persistent fevers, abdominal pain, or any other unusual signs/symptoms. The patient verbalized understanding of her discharge instructions. At this time I would like to thank all the consultants for following the patient and providing clinical recommendations. Case discussed with Dr. Victor. Home Meds Active Scripts Ferrous Sulfate* (Ferrous Sulfate*) 325 Mg Tabec, 325 MG PO BID for 30 Days, TAB Prov:SARITA BENSON NP 09/27/16 Follow-up Plan Follow-up with your CHIROPRACTIC PRACTICE MANAGER in 1 week. Primary Care Provider Alba Garzon Time spent on discharge: > 30 minutes Pending Labs Laboratory Tests Test 09/27/16 06:33 09/27/16 06:35 09/27/16 06:40 Phosphorus Level 4.7mg/dl (2.5-4.9) Magnesium Level 1.8mg/dl (1.7-2.5) White Blood Count 9.410^3/ul (4.8-10.8) Red Blood Count 3.7510^6/ul (4.20-5.40) Hemoglobin 10.5g/dl (12.0-16.0) Hematocrit 30.2% (37.0-47.0) Mean Corpuscular Volume 80.5fl (82.0-101.0) Mean Corpuscular Hemoglobin 28.0pg (29.0-33.0) Mean Corpuscular Hemoglobin Concent 34.8g/dl (32.0-37.0) Red Cell Distribution Width 13.7% (11.5-14.5) Platelet Count 78059^3/UL (140-415) Mean Platelet Volume 9.7fl (7.4-10.4) Neutrophils % 47.4% (39.0-77.0) Lymphocytes % 37.1% (15.0-51.0) Monocytes % 8.0% (0.0-11.0) Eosinophils % 3.2% (0.0-7.0) Basophils % 0.6% (0.0-2.0) Nucleated Red Blood Cells % 0.2/100WBC (0.0-0.0) Neutrophils # 4.510^3/ul (1.6-7.5) Lymphocytes # 3.510^3/ul (0.8-2.9) Monocytes # 0.810^3/ul (0.3-0.9) Eosinophils # 0.310^3/ul (0.0-0.5) Basophils # 0.110^3/ul (0.0-0.1) Nucleated Red Blood Cells # 0.010^3/ul (0.0-0.0) Sodium Level 136mmol/L (135-144) Potassium Level 3.5mmol/L (3.5-5.1) Chloride Level 104mmol/L (97-110) Carbon Dioxide Level 26mmol/L (21-31) Anion Gap 10 (8-16) Blood Urea Nitrogen 7mg/dl (7-20) Creatinine 0.49mg/dl (0.44-1.00) Glucose Level 84mg/dl (70-220) Calcium Level 9.0mg/dl (8.4-10.2) SARITA BENSON NP Sep 27, 2016 11:41
--- NOTE | 2016-10-01 11:10 | CONS ---
DATE OF ADMISSION: 09/22/2016 DATE OF CONSULTATION: 09/23/2016 REASON FOR CONSULTATION: Antibiotic management HISTORY OF PRESENT ILLNESS: Dasia Cr is a 26-year-old, female who was transferred from [facility] for bilateral lower abdominal pain and possible endometriosis and endometritis. She was complaining of pain with fever and bilateral lower abdominal pain. She had a miscarriage 15 days ago. She was seen in the clinic where she had a D\T\C approximately 5 days ago. The pain started last night at 5 p.m., that was September 22. She had vomiting as well. On admission her white count was 15.6, H\T\H 10.6 and 29, platelet count 142,000. BUN and creatinine 11/0.64. PAST SURGICAL HISTORY: Status post appendectomy and D and C 5 days ago. She also had a miscarriage. PAST MEDICAL HISTORY: Noncontributory. FAMILY HISTORY: No pertinent family history. SOCIAL HISTORY: She does not smoke, drink, or use drugs. ALLERGIES: NONE TO PENICILLIN, SULFA, OR FOODS. MEDICATIONS: Per chart. REVIEW OF SYSTEMS: As per HPI. PHYSICAL EXAMINATION: The patient is an obese, female who is in mild distress from pain. VITAL SIGNS: T-max 103.1, pulse 127, blood pressure 94/54. Respirations were 18. SKIN: Without generalized rash. HEENT: Within normal limits. NECK: Supple. Lymph nodes palpable. CHEST: Decreased breath sounds at the bases. HEART: Without murmur or gallop. ABDOMEN: Soft. Bilateral lower abdominal quadrant tenderness to palpation. EXTREMITIES: Without cyanosis, clubbing, or edema. GENITORECTAL: Deferred. NEUROLOGIC: No focal neurological abnormalities. IMPRESSION AND PLAN: Patient presents now with probable sepsis with fever, leukocytosis, tachycardia, and infection. Patient was started on ceftriaxone and doxycycline. She was treated with clindamycin and gentamycin at [facility]. A STAT vaginal ultrasound was ordered. BUTTON MAKER was asked to consult. Patient was moved to Telemetry because of desaturation. As noted, a CT of the abdomen was done. She has had blood cultures done. Ultrasound of the pelvis. Urine cultures were done. Will continue her on ceftriaxone and doxycycline. I will dictate my findings to the hospitalist. Dictated By: Dean Negrete MD JD/aubrey/[email or web address] /Document#: [id number]
== END 2016-09-27 13:50 | disposition home or self-care (01) | DRG 872 ==
LOC: PP2 22:22 → TEL 09-23 18:51
PROVIDERS: ADMIT Internal Medicine; ATTEND Internal Medicine
DX: A41.9 Sepsis, unspecified organism (principal); J98.11 Atelectasis; N71.9 Inflammatory disease of uterus, unspecified; D50.9 Iron deficiency anemia, unspecified; K80.20 Calculus of gallbladder without cholecystitis without obstruction; E66.9 Obesity, unspecified; Z68.23 Body mass index [BMI] 23.0-23.9, adult
CPT/HCPCS: 70450; 71010; 74176; 76705; 76856; 80048; 80053; 80061; 81001; 82728; 83036; 83540; 83735; 84100; 84439; 84443; 84703; 85025; 85610; 85730; 87040; 87086; 93005; C9113; J0696; J1170; J1885; J2270; J2405; J2916; J7030; J7040; J7050